=== PATIENT | female | born 1960 | race Caucasian/White ===

== ENCOUNTER 2020-03-24 16:13 | Emergency (ER) | payer MEDICARE, MEDICAID ==
[~2020-03-24 16:13] MED LIST: Iopamidol-370 76% 500 ML 1 ML ONE
[2020-03-24 17:20] LABS: Bacteria/HPF 2+ HPF (None Seen); Bilirubin Negative (Negative); Blood, Urine Negative (Negative); Clarity Turbid (Clear); Glucose, Urine (Dipstick) Normal (Negative); Ketone, Urine Negative (Negative); Leukocyte 500 Leu/uL (Negative); Nitrite 2+ (Negative); Protein, Urine (Dipstick) Negative (Neg-Trace); RBC/HPF 0-3 HPF (0-3); Squamous Epithelial 0-3 HPF (0-3); Urobilinogen Normal mg/dL (Less than 2); WBC/HPF Greater than 50 HPF (0-3)
[2020-03-24 18:00] LABS: #Basophils 0.1 thou/uL (0.0-0.2); #Eosinphils 0.2 thou/uL (0.0-0.7); #Lymphocytes 1.9 thou/uL (1.20-3.40); #Monocytes 0.6 thou/uL (0.11-0.59); #Neutrophils 5.2 thou/uL (1.40-6.50); %Basophils 0.7 % (0.0-1.0); %Eosinophils 2.5 % (0.0-10.0); %Lymphocytes 23.9 % (21.0-51.0); %Monocytes 7.7 % (0.0-10.0); %Neutrophils 65.2 % (42.0-75.0); Hemoglobin 9.6 g/dL (12.0-16.0); Mean Corpuscular HGB CONC 31.7 g/dL (32.0-36.0); Mean Corpuscular Hemoglobin 26.7 pg (27.0-31.0); Mean Corpuscular Volume 84.4 fL (78.0-98.0); Mean Platelet Volume 9.2 fL (7.4-10.4); Platelet Count 256 thou/uL (130-400); RBC Distribution Width 17.2 % (11.5-14.5); Red Blood Cell (RBC) Count 3.59 mill/uL (4.20-5.40)
[2020-03-24 18:15] LABS: ALT (SGPT) 7 U/L (8-55); AST (SGOT) 11 U/L (5-34); Albumin 3.9 g/dL (3.5-5.0); Alkaline Phosphatase 54 U/L (40-110); Anion Gap 12 mmol/L (10-20); BUN (Urea Nitrogen) 9 mg/dL (9.8-20.1); Bilirubin, Total 0.2 mg/dL (0.2-1.2); Calc. Creatinine Clearance 0 mL/min (70-130); Calcium 9.4 mg/dL (7.8-10.44); Carbon Dioxide 21 mmol/L (22-29); Chloride 106 mmol/L (98-107); Estimated GFR-MDRD 74; Globulin 3.1 g/dL (2.4-3.5); Glucose 124 mg/dL (70-105); Potassium 3.3 mmol/L (3.5-5.1); Sodium 136 mmol/L (136-145)
[2020-03-24] MEDS ORDERED: cefTRIAXone\\ROCEPHIN 2 GM VIAL ONE (20:02)
[2020-03-24] MEDS ORDERED: Aspirin Chewable 81 MG TAB ONE ×2 (20:39)
[2020-03-24] MEDS ORDERED: Fentanyl 100 MCG/2 ML VIAL ONE (20:52)
--- NOTE | 2020-03-24 20:54 | CT ---
CT ANGIOGRAM THORAX WITH IV CONTRAST AND 3-D RECONSTRUCTIONS CLINICAL INDICATION: Syncope. Intermittent dizziness. COMPARISON: None FINDINGS: Pulmonary arteries: No filling defects are seen in the pulmonary arteries to suggest a pulmonary embo martin. Aorta: Not well opacified but normal in caliber. Vascular calcifications are seen in the aortic arch. Vascular calcifications are seen in the coronary arteries. Lungs: Mild dependent atelectasis. Approximately 4 mm pulmonary nodule is present in the right upper lobe with closely adjacent and slightly smaller pulmonary nodule. No additional pulmonary nodule or mass is seen in the lungs bilaterally. No pleural effusion is present. Mediastinum: There is no evidence of lymphadenopathy. A hiatal hernia is present with the fundus of t he stomach above the level of the hemidiaphragms. Thyroid gland: Grossly normal appearance where visualized Osseous structures: Remote right-sided rib fractures are seen. Chest wall: No abnormality visualized. Upper abdomen: Postcholecystectomy changes. Calcifications are seen along the medial margin of the sp elia. IMPRESSION: 1. No CT evidence of a pulmonary embolus. 2. Pulmonary nodules right upper lobe which are overall nonspecific with largest pulmonary nodule berenice suring approximately 4 mm. 3. Hiatal hernia. 4. Postcholecystectomy changes.
[2020-03-25] MEDS ORDERED: Fentanyl 100 MCG/2 ML VIAL ONE (00:08)
== END 2020-03-25 00:23 | disposition short-term general hospital (02) ==
LOC: ERS 16:13
DX: R55 Syncope and collapse (principal); R00.1 Bradycardia, unspecified; J44.9 Chronic obstructive pulmonary disease, unspecified; F41.9 Anxiety disorder, unspecified; F17.220 Nicotine dependence, chewing tobacco, uncomplicated; Z79.899 Other long term (current) drug therapy
CPT/HCPCS: 36415; 71275; 80053; 81003; 81015; 83735; 84484; 85025; 87077; 87086; 87186; 93005; 96365; 96375; 96376; J0696; J3010; Q9967

== ENCOUNTER 2020-05-02 18:44 | Inpatient (IN) | payer MEDICARE, MEDICAID, OTHER ==
[2020-05-02 19:23] LABS: #Basophils 0.1 thou/uL (0.0-0.2); #Eosinphils 0.5 thou/uL (0.0-0.7); #Lymphocytes 2.3 thou/uL (1.20-3.40); #Monocytes 0.7 thou/uL (0.11-0.59); #Neutrophils 8.2 thou/uL (1.40-6.50); %Basophils 0.8 % (0.0-1.0); %Lymphocytes 19.6 % (21.0-51.0); %Monocytes 5.8 % (0.0-10.0); %Neutrophils 69.8 % (42.0-75.0); Hemoglobin 9.7 g/dL (12.0-16.0); Mean Corpuscular HGB CONC 32.8 g/dL (32.0-36.0); Mean Corpuscular Hemoglobin 28.4 pg (27.0-31.0); Mean Corpuscular Volume 86.5 fL (78.0-98.0); Mean Platelet Volume 9.1 fL (7.4-10.4); Platelet Count 330 thou/uL (130-400); RBC Distribution Width 18.7 % (11.5-14.5); White Blood Cell (WBC) Count 11.8 thou/uL (4.8-10.8)
[2020-05-02 19:43] LABS: ALT (SGPT) 8 U/L (8-55); AST (SGOT) 13 U/L (5-34); Alkaline Phosphatase 42 U/L (40-110); Anion Gap 9 mmol/L (10-20); BUN (Urea Nitrogen) 18 mg/dL (9.8-20.1); Bilirubin, Total 0.2 mg/dL (0.2-1.2); Calc. Creatinine Clearance 0 mL/min (70-130); Carbon Dioxide 25 mmol/L (22-29); Chloride 106 mmol/L (98-107); Estimated GFR-MDRD 73; Globulin 2.9 g/dL (2.4-3.5); Glucose 81 mg/dL (70-105); Potassium 3.6 mmol/L (3.5-5.1); Protein, Total 6.9 g/dL (6.0-8.3); Sodium 136 mmol/L (136-145)
[2020-05-02] MEDS ORDERED: Lidocaine Viscous Sol 2% 15 ml UD Cup ONE (19:46)
[2020-05-02] MEDS ORDERED: Pantoprazole 40 MG VIAL ONE (19:47)
[2020-05-02] MEDS ORDERED: Mag-Al 1200 mg/1200 mg/30 ML UDCUP ONE (19:47)
--- NOTE | 2020-05-02 19:53 | RAD ---
PORTABLE CHEST: 05/02/20 PROVIDED CLINICAL HISTORY: Shortness of breath. FINDINGS: Comparison 04/22/14. The cardiac silhouette is within normal limits for portable technique. Moderate hiatal hernia redemo nstrated. No focal consolidation, pleural fluid, or pneumothorax apparent. IMPRESSION: No evidence for an acute cardiopulmonary process. POS: JERONIMO
[2020-05-02] MEDS ORDERED: diphenhydrAMINE 50 MG/ML VIAL ONE (20:08)
[2020-05-02] MEDS ORDERED: Metoclopramide HCl 10 MG/2 ML VIAL ONE (20:08)
[2020-05-02] MEDS ORDERED: Magnesium 2 GM/50 ML BAG (IN WATER) ONE (20:18)
[2020-05-03 02:55] LABS: Troponin I Less than 0.010 ng/mL (< 0.028)
--- NOTE | 2020-05-03 03:28 | PDOC.HHP ---
Hospitalist HPI - History of Present Illness Falls/Syncope, GI bleed History of Present Illness: Patient is a 60-year-old woman who presents to the emergency department following a syncopal episode. The patient states she has had frequent falls in the last 2 days associated with a low hemoglobin. She states for the last couple days she has noted melena and coffee-ground emesis. She reports generalized abdominal discomfort and today has developed a burning type of discomfort in the epigastric region. She has a history of having GI bleeds in the past and requiring blood transfusions. She apparently has been experiencing generalized weakness and shortness of breath for the last 2 weeks. She had an EGD done recently according to the patient which showed esophageal bleeding. Currently she complains of having a headache and pain on the backside of her neck. States this is due to multiple falls. She has not undergone any imaging in the emergency department. ED COURSE: Chest x-ray showed no evidence for an acute cardiopulmonary process Labs notable for white cell count 11.8, hemoglobin 9.7, hematocrit 29.4, platelets 330, neutrophils 8.2. LFTs unremarkable. BUN 18 creatinine 0.81 GFR 73. PAST MEDICAL HISTORY: Asthma COPD History of bowel obstruction Hepatitis C Mitral valve regurgitation Borderline pulmonary hypertension Anxiety Depression PTSD. History of suicide attempts. PAST SURGICAL HISTORY: Hysterectomy Small bowel obstruction lysis of adhesions Cholecystectomy Hernia repair Fundoplication SOCIAL HISTORY: Patient states she drinks alcohol socially only. Denies any tobacco use or illicit drug use. FAMILY HISTORY: Noncontributory. ALLERGIES: Codeine sulfate, mirtazapine, oxycodone, Toradol, tramadol, zolpidem CURRENT MEDICATIONS: Proventil Alprazolam 0.5 mg twice daily Symbicort Citalopram 20 mg p.o. daily Ferrous sulfate 325 mg p.o. 3 times daily Incruse Ellipta Mid to drain 5 mg p.o. 3 times daily Pantoprazole 40 mg p.o. daily - Exam General Appearance: NAD (found sleeping on stretcher, easily woken.) General - other findings: BP 108/73, HR 52, RR 20, temp 98.3, 98% on room air O2 sats Eye: PERRL, anicteric sclera ENT: moist mucosa Neck: supple, symmetric, no lymphadenopathy Heart: RRR, no murmur, no gallops, normal peripheral pulses Respiratory: CTAB, no wheezes, no rales, no ronchi, normal chest expansion Gastrointestinal: soft, non-distended, no guarding Extremities: no edema Skin: normal turgor, no lesions Neurological: cranial nerve grossly intact, normal sensation to touch Musculoskeletal: normal tone, normal strength, no muscle wasting Psychiatric: normal affect, normal behavior, A&O x 3 Hospitalist Results - Labs Result Diagrams: 05/02/20 19:12 05/02/20 19:12 Lab results: WBC 11.8 thou/uL (4.8-10.8) H 05/02/20 19:12 Hgb 9.7 g/dL (12.0-16.0) L 05/02/20 19:12 Hct 29.4 % (36.0-47.0) L 05/02/20 19:12 MCV 86.5 fL (78.0-98.0) 05/02/20 19:12 Plt Count 330 thou/uL (130-400) 05/02/20 19:12 Neutrophils % 69.8 % (42.0-75.0) 05/02/20 19:12 Sodium 136 mmol/L (136-145) 05/02/20 19:12 Potassium 3.6 mmol/L (3.5-5.1) 05/02/20 19:12 Chloride 106 mmol/L (98-107) 05/02/20 19:12 Carbon Dioxide 25 mmol/L (22-29) 05/02/20 19:12 BUN 18 mg/dL (9.8-20.1) 05/02/20 19:12 Creatinine 0.81 mg/dL (0.6-1.1) 05/02/20 19:12 Glucose 81 mg/dL (70-105) 05/02/20 19:12 Calcium 9.0 mg/dL (7.8-10.44) 05/02/20 19:12 Total Bilirubin 0.2 mg/dL (0.2-1.2) 05/02/20 19:12 AST 13 U/L (5-34) 05/02/20 19:12 ALT 8 U/L (8-55) 05/02/20 19:12 Alkaline Phosphatase 42 U/L (40-110) 05/02/20 19:12 Troponin I Less than 0.010 ng/mL (< 0.028) 05/03/20 02:24 Serum Total Protein 6.9 g/dL (6.0-8.3) 05/02/20 19:12 Albumin 4.0 g/dL (3.5-5.0) 05/02/20 19:12 Hospitalist H&P A/P - Problem (1) Syncope and collapse Code(s): R55 - SYNCOPE AND COLLAPSE Status: Acute (2) Coffee ground emesis Code(s): K92.0 - HEMATEMESIS Status: Acute (3) Melena Code(s): K92.1 - MELENA Status: Acute (4) History of GI bleed Code(s): Z87.19 - PERSONAL HISTORY OF OTHER DISEASES OF THE DIGESTIVE SYSTEM Status: Chronic (5) History of COPD Code(s): Z87.09 - PERSONAL HISTORY OF OTHER DISEASES OF THE RESPIRATORY SYSTEM Status: Chronic (6) Hepatitis C Code(s): B19.20 - UNSPECIFIED VIRAL HEPATITIS C WITHOUT HEPATIC COMA Status: Chronic - Plan Plan: Monitor BP. Gentle IV fluids. IV protonix 40 mg BID. Monitor H/H. GI consult has been place. Keep NPO until seen. CT head/cspine. Orthostatic BPs. Check alcohol level. UA/UDS.
[2020-05-03] MEDS: Sodium Chloride 0.9% 1,000 ML IV SCH ×2 (03:30→18:16)
[2020-05-03] MEDS ORDERED: Acetaminophen 325 MG TAB PO PRN (03:52)
[2020-05-03 05:22] VITALS: BMI 27.7
[2020-05-03 05:22] LABS: #Basophils 0.1 thou/uL (0.0-0.2); #Eosinphils 0.4 thou/uL (0.0-0.7); #Lymphocytes 1.9 thou/uL (1.20-3.40); #Monocytes 0.5 thou/uL (0.11-0.59); #Neutrophils 3.1 thou/uL (1.40-6.50); %Basophils 1.6 % (0.0-1.0); %Lymphocytes 31.4 % (21.0-51.0); %Monocytes 7.7 % (0.0-10.0); %Neutrophils 53.2 % (42.0-75.0); Hemoglobin 9.5 g/dL (12.0-16.0); Mean Corpuscular HGB CONC 32.4 g/dL (32.0-36.0); Mean Corpuscular Hemoglobin 28.3 pg (27.0-31.0); Mean Corpuscular Volume 87.5 fL (78.0-98.0); Platelet Count 269 thou/uL (130-400); RBC Distribution Width 18.6 % (11.5-14.5); Red Blood Cell (RBC) Count 3.36 mill/uL (4.20-5.40); White Blood Cell (WBC) Count 5.9 thou/uL (4.8-10.8)
[2020-05-03 05:43] LABS: ALT (SGPT) Less than 7 U/L (8-55); AST (SGOT) 12 U/L (5-34); Albumin 3.6 g/dL (3.5-5.0); Alkaline Phosphatase 38 U/L (40-110); Anion Gap 10 mmol/L (10-20); BUN (Urea Nitrogen) 16 mg/dL (9.8-20.1); Bilirubin, Total 0.2 mg/dL (0.2-1.2); Calc. Creatinine Clearance 95 mL/min (70-130); Calcium 8.6 mg/dL (7.8-10.44); Carbon Dioxide 23 mmol/L (22-29); Chloride 107 mmol/L (98-107); Estimated GFR-MDRD 77; Globulin 2.6 g/dL (2.4-3.5); Glucose 85 mg/dL (70-105); Potassium 3.8 mmol/L (3.5-5.1); Protein, Total 6.2 g/dL (6.0-8.3); Sodium 136 mmol/L (136-145)
[2020-05-03 05:53] LABS: Troponin I Less than 0.010 ng/mL (< 0.028)
--- NOTE | 2020-05-03 07:38 | CT ---
PRELIMINARY REPORT/[facility]/EMERGENCY AFTER HOURS PROCEDURE EXAM: CT Head and Cervical Spine Without IV contrast. CLINICAL HISTORY: FALL TECHNIQUE: Axial computed tomography images were acquired of the head and the cervical spine without intravenous contrast. Sagittal and coronal reformatted images were obtained of the cervical spine. COMPARISON: None provided. FINDINGS: BRAIN: No acute intraparenchymal hemorrhage. No mass lesion. No CT evidence for acute territorial infarct. N o midline shift or extra-axial collection. VENTRICLES No hydrocephalus. ORBITS The orbits are unremarkable. SINUSES AND MASTOIDS The paranasal sinuses and mastoid air cells are clear. SOFT TISSUES No significant facial or scalp soft tissue swelling evident. No radiopaque foreign body is seen. BONES No acute osseous pathology evident. No acute fracture is evident on images of the head or cervical spine. DISKS/DEGENERATIVE CHANGES Degenerative changes at C5-C6 level with narrowing of the neural foramen. No critical spinal stenosi s is seen. IMPRESSION: 1. No acute intracranial findings. No acute intracranial injury evident. 2. No cervical spine fracture evident. ELECTRONICALLY SIGNED BY: Boom Manning MD May 03, 2020 5:39:12 AM CDT This report is intended for review by the ordering physician only, in accordance of law. If you recei ve this report in error, please call [facility] at [phone]. FINAL REPORT Exam: Head CT without contrast HISTORY: Fall. Headache. COMPARISON: 08/26/2002 FINDINGS: Hemorrhage: No intraparenchymal hemorrhage or extra-axial hematoma. Brain parenchyma: Cortical watson-white matter differentiation is preserved. No mass effect or midline shift. Basilar cisterns are patent. Ventricular system: Ventricles and sulci are patent and symmetric. Calvarium: Intact. Sinuses and mastoid air cells: Adequate aeration. IMPRESSION: 1. This report is in agreement with initial report by [facility]. 2. No intracranial posttraumatic sequelae. Transcribed Date/Time: 05/03/2020 9:45 AM
--- NOTE | 2020-05-03 07:47 | CT ---
PRELIMINARY REPORT/[facility]/EMERGENCY AFTER HOURS PROCEDURE EXAM: CT Head and Cervical Spine Without IV contrast. CLINICAL HISTORY: FALL TECHNIQUE: Axial computed tomography images were acquired of the head and the cervical spine without intravenous contrast. Sagittal and coronal reformatted images were obtained of the cervical spine. COMPARISON: None provided. FINDINGS: BRAIN: No acute intraparenchymal hemorrhage. No mass lesion. No CT evidence for acute territorial infarct. N o midline shift or extra-axial collection. VENTRICLES No hydrocephalus. ORBITS The orbits are unremarkable. SINUSES AND MASTOIDS The paranasal sinuses and mastoid air cells are clear. SOFT TISSUES No significant facial or scalp soft tissue swelling evident. No radiopaque foreign body is seen. BONES No acute osseous pathology evident. No acute fracture is evident on images of the head or cervical spine. DISKS/DEGENERATIVE CHANGES Degenerative changes at C5-C6 level with narrowing of the neural foramen. No critical spinal stenosi s is seen. IMPRESSION: 1. No acute intracranial findings. No acute intracranial injury evident. 2. No cervical spine fracture evident. ELECTRONICALLY SIGNED BY: Boom Manning MD May 03, 2020 5:39:12 AM CDT This report is intended for review by the ordering physician only, in accordance of law. If you recei ve this report in error, please call [facility] at [phone]. FINAL REPORT Exam: CT cervical spine without contrast HISTORY: Trauma. Pain. Fall. COMPARISON: None FINDINGS: No craniocervical dissociation. Appropriate alignment of the lateral masses of C1 and C2. Intact odon toid process Appropriate alignment of the facets. Soft tissue neck structures: No mass, lymphadenopathy or hematoma. No prevertebral soft tissue swelli ng. Upper mediastinum and lung apices: Unremarkable Central spinal canal: Moderate central canal stenosis at C5-C6 secondary to disc osteophyte complex. Varying degrees of significant neural foraminal narrowing. Technique limits evaluation. Vertebral bodies: Cervical spine vertebral body height is maintained. No fracture. IMPRESSION: 1. This report is in agreement with initial report by [facility]. 2. No fracture. Transcribed Date/Time: 05/03/2020 9:44 AM
--- NOTE | 2020-05-03 07:51 | CT ---
CT ABDOMEN AND PELVIS WITH IV CONTRAST: Date: 05/02/2020 PROVIDED CLINICAL HISTORY: Epigastric pain. FINDINGS: The visualized lung bases are free of significant opacity. There is moderate hiatal hernia demonstrat ed. The solid abdominal organs demonstrate no significant abnormality. Changes of prior cholecystectomy are seen. There is no evidence for appendicitis. There is no bowel dilatation, inflammatory fat stranding, free fluid, or free air apparent. The regional major vascular structures appear unremarkable. The osseous structures demonstrate no concerning lytic or blastic lesions. IMPRESSION: No evidence for an acute process. POS: JERONIMO
[2020-05-03] MEDS: Pantoprazole 40 MG VIAL IVP SCH ×2 (08:06→20:08)
[2020-05-03 08:36] LABS: Hemoglobin 9.3 g/dL (12.0-16.0)
[2020-05-03 08:56] LABS: Amphetamine Not Detected (NotDetected); Barbiturates Screen Not Detected (NotDetected); Benzodiazepine Screen Detected (NotDetected); Cocaine Metabolite Screen Not Detected (NotDetected); Medtox Control Line Valid? VALID (VALID); Medtox Reader # READER 1; Methadone Not Detected (NotDetected); Methamphetamine Not Detected (NotDetected); Opiate Screen Not Detected (NotDetected); Oxycodone Screen Not Detected (NotDetected); Phencyclidine (PCP) Not Detected (NotDetected); THC/Cannabinoid Screen Detected (NotDetected); Tricyclic Screen Not Detected (NotDetected)
[2020-05-03] MEDS ORDERED: Non-Formulary Item 1 EACH (Albuterol Sulfate [Albuterol Sulfate Neb] 0.63 MG) NEB PRN (09:14)
[2020-05-03] MEDS ORDERED: Non-Formulary Item 1 EACH (Cholecalciferol (Vitamin D3) [Vitamin D3] 1 TAB) PO SCH (09:15)
[2020-05-03] MEDS ORDERED: Albuterol Sulfate 1.25 MG/3 ML NEB NEB PRN (09:32)
[2020-05-03] MEDS: HYDROcodone/Acetaminophen 5/325 mg Tablet PO PRN (11:46)
[2020-05-03] MEDS ORDERED: Promethazine HCl 25 MG/ML VIAL IM/IV PRN (11:55)
[2020-05-03] MEDS ORDERED: Ergocalciferol 1.25 MG(50,000 UNITS) CAP PO SCH (12:00)
[2020-05-03] MEDS ORDERED: Promethazine HCl 12.5 MG in Sodium Chloride 0.9% 50 ML IVPB PRN (12:38)
[2020-05-03] MEDS ORDERED: Promethazine HCl 25 MG in Sodium Chloride 0.9% 50 ML IVPB PRN (12:45)
[2020-05-03 13:48] LABS: SARS-CoV-2 MS2 Positive; SARS-CoV-2 N Gene Negative; SARS-CoV-2 S Gene Negative; SARS-CoV-2 by NAA Not Detected (NotDetected); SARS-CoV-2 orf1ab Negative
[2020-05-03] MEDS: Ipratropium Bromide 2.5 ml Neb NEB SCH ×3 (14:25→23:57)
[2020-05-03 14:30] LABS: Hemoglobin 8.6 g/dL (12.0-16.0)
[2020-05-03] MEDS ORDERED: Non-Formulary Item 1 EACH (Ferrous Sulfate [Ferrous Sulfate] 325 MG) PO SCH (15:00)
--- NOTE | 2020-05-03 15:35 | RAD ---
Exam:2 views right hip HISTORY: Fall. Pain. COMPARISON: 01/20/2007 FINDINGS: Contour of the femoral head is maintained. Hip joint spaces preserved. No fracture. Visuali zed sacrum and bony pelvis are intact. IMPRESSION: No fracture.
[2020-05-03] MEDS: Ferrous Sulfate 325 MG TAB PO SCH ×2 (15:49→20:08)
[2020-05-03] MEDS: Midodrine HCl 5 MG TAB PO SCH ×2 (15:49→20:13)
[2020-05-03] MEDS: ALPRAZolam 0.5 MG TAB PO SCH ×2 (15:49→20:08)
[2020-05-03] MEDS ORDERED: Lidocaine 5% Patch TD SCH (17:45)
[2020-05-03] MEDS: Morphine 2 MG/ML VIAL SLOW IVP PRN (18:16)
[2020-05-03] MEDS: Lidocaine 5% Patch TD SCH (18:18)
[2020-05-03] MEDS: Mometasone 200 MCG/Formoterol 5 MCG 120 PUFF INHALER INH SCH (19:09)
[2020-05-03 20:04] LABS: Hemoglobin 8.4 g/dL (12.0-16.0)
[2020-05-03] MEDS: Citalopram 20 MG TAB PO SCH (20:12)
[2020-05-03] MEDS: risperiDONE 0.25 MG TAB PO SCH (20:12)
[2020-05-03] MEDS ORDERED: Non-Formulary Item 1 EACH (Risperidone [Risperdal] 0.5 MG) PO SCH (21:00)
[2020-05-03] MEDS ORDERED: Non-Formulary Item 1 EACH (Budesonide/Formoterol Fumarate [Budesonide-Formoterol 160-4.5] IH SCH (21:00)
--- NOTE | 2020-05-04 00:28 | CON ---
DATE OF CONSULTATION: 05/03/2020 CHIEF COMPLAINT: Fall and black stools. HISTORY OF PRESENT ILLNESS: Ms. Burciaga is a 60-year-old woman with a history of hepatitis C and possible cirrhosis, who states that she had fallen a couple times at home and has been passing black stools for the last 3 days. She has had no bowel movement today. She had been on iron for anemia. She had an EGD may be around a month ago in [place] and had some bleeding treated in her esophagus. She also had a colonoscopy per her report. She is somewhat confused now, slow to answer questions. Unclear if this is due to the pain medications or if she is encephalopathic. She has had some mild epigastric pain. She vomited some dark green material. She did have a Hemoccult tested when she came in that was negative. She has a history of blood transfusion for GI bleed in the past. She takes Excedrin daily. PAST MEDICAL HISTORY: Asthma and COPD, hepatitis C, pulmonary hypertension, depression, PTSD, history of suicide attempt, and questionable history of cirrhosis as she is somewhat confused and difficult to tell of she is answering accurately. PAST SURGICAL HISTORY: Recent EGD and colonoscopy, hysterectomy, small bowel obstruction with lysis of adhesions, cholecystectomy, hernia repair, and fundoplication five or six years ago. FAMILY HISTORY: Negative for GI malignancies. SOCIAL HISTORY: She drinks alcohol once per year. No drugs or tobacco. ALLERGIES: CODEINE, MIRTAZAPINE, OXYCODONE, TORADOL, TRAMADOL, AND AMBIEN. MEDICATIONS: 1. Nebulizer. 2. Pantoprazole 40 mg daily. REVIEW OF SYSTEMS: Negative x10 systems reviewed except as stated in the history of present illness. PHYSICAL EXAMINATION: VITAL SIGNS: Temperature 97.5, pulse 66, and blood pressure 113/57. GENERAL: She is in no acute distress. She is oriented x3, but she is slow to answer questions and gives somewhat questionable accuracy to her history now. HEENT: Her eyes have no scleral icterus. Oropharynx is clear without lesions. No cervical or supraclavicular lymphadenopathy. She does not have obvious asterixis on neurological exam. LUNGS: Clear to auscultation bilaterally. HEART: Regular rate and rhythm without murmur. ABDOMEN: Soft, nontender, and nondistended. Bowel sounds are present. EXTREMITIES: No lower extremity edema. RECTAL: Reveals firm dark stool in the rectal vault, very dark brown. LABORATORY DATA: White blood cell count 5.9, hemoglobin 8.6, and platelets 269. Creatinine 0.77, bilirubin 0.2, AST 12, ALT 7, alkaline phosphatase 38, and albumin 3.6. Urine cannabinoids were positive. IMAGING: She had a CT scan of the abdomen and pelvis yesterday, which was negative. IMPRESSION: 1. Gastrointestinal bleed. She has had black stools for the last few days and reportedly some coffee-grounds emesis as well. She reports an endoscopy one month ago with treatment of bleeding esophageal lesions. She was actually Hemoccult negative here in the black stools could be due to iron supplementation; however, there could be some inaccuracy with the Hemoccult and given the history with concern of liver disease and esophageal lesion, I will plan for endoscopy tomorrow. She has not had signs of overt bleeding otherwise today. 2. History of hepatitis C. when asked her she has cirrhosis. She says yes, but her bilirubin is normal. Her platelets are normal. Her INR is not known. Her albumin is normal. No splenomegaly or nodular contour was noted by CT scan. She states that she was treated for the hepatitis C a few years ago with appropriate response. 3. Possible encephalopathy. She is slow and sleepy and falls asleep when not stimulated. This might just be due to the pain medicine. I will give her dose of the lactulose and check an ammonia level. RECOMMENDATIONS: 1. Lactulose dose now. 2. Check ammonia level. 3. EGD tomorrow. Job ID: [id number]
[2020-05-04] MEDS: Morphine 2 MG/ML VIAL SLOW IVP PRN ×3 (03:08→18:55)
[2020-05-04] MEDS: Levothyroxine Sodium 100 MCG TAB PO SCH (03:09)
[2020-05-04] MEDS: Lidocaine Patch Removal 1 EACH TOP SCH (05:08)
[2020-05-04] MEDS: Mometasone 200 MCG/Formoterol 5 MCG 120 PUFF INHALER INH SCH ×2 (07:17→19:47)
[2020-05-04] MEDS: Ipratropium Bromide 2.5 ml Neb NEB SCH ×3 (07:17→19:46)
--- NOTE | 2020-05-04 07:33 | PDOC.HOSPP ---
- Subjective Encounter Date: 05/04/20 Encounter Time: 07:23 Subjective: alert, no nausea, vomiting - Objective Vital Signs & Weight: Vital Signs (12 hours) Temp Pulse Resp BP Pulse Ox 05/04/20 07:17 90 16 05/04/20 03:12 97.7 F 68 13 97/54 L 95 05/04/20 00:20 65 20 110/59 L 98 05/03/20 23:57 93 L Weight Weight 166 lb 9.6 oz I&O: 05/03/20 05/04/20 05/05/20 06:59 06:59 06:59 Intake Total 1775 Output Total 1950 Balance -175 Result Diagrams: 05/03/20 19:52 05/03/20 04:53 Hospitalist ROS - Medication Medications: Active Medications Generic Name Dose Route Start Last Admin Trade Name Freq PRN Reason Stop Dose Admin Acetaminophen 650 mg 05/03/20 03:52 05/03/20 04:45 Tylenol PO 650 mg Q4H PRN Administration Headache/Fever or Pain Hydrocodone Bitart/Acetaminophen 1 tab 05/03/20 09:14 05/03/20 11:46 [place] 5/325 PO 1 tab Q6H PRN Administration Pain Alprazolam 1 mg 05/03/20 15:00 05/03/20 20:08 Xanax PO 1 mg TID ALEJANDRINA Administration Citalopram Hydrobromide 40 mg 05/03/20 21:00 05/03/20 20:12 Celexa PO 40 mg HS ALEJANDRINA Administration Ferrous Sulfate 325 mg 05/03/20 15:00 05/03/20 20:08 Feosol PO 325 mg TID ALEJANDRINA Administration Sodium Chloride 1,000 mls @ 75 mls/hr 05/03/20 03:15 05/03/20 18:16 Normal Saline 0.9% IV 1,000 mls .[id number] ALEJANDRINA Administration Promethazine HCl 25 mg/ Sodium 51 mls @ 204 mls/hr 05/03/20 12:45 05/03/20 17 :21 Chloride IVPB 51 mls Q6H PRN Administration Nausea Ipratropium [place] 2.5 ml 05/03/20 13:00 05/04/20 07:17 Atrovent NEB 2.5 ml [id number] ALEJANDRINA Administration Levothyroxine Sodium 100 mcg 05/04/20 06:00 05/04/20 03:09 Synthroid PO 100 mcg 0600 ALEJANDRINA Administration Lidocaine 1 patch 05/03/20 18:00 05/03/20 18:18 Lidoderm 5% Patch TD 1 patch 1800 ALEJANDRINA Administration Midodrine 5 mg 05/03/20 15:00 05/03/20 20:13 Proamatine PO 5 mg TID ALEJANDRINA Administration Miscellaneous Medication 1 each 05/04/20 06:00 05/04/20 05:08 Lidocaine Patch Removal TOP Not Given 0600 ALEJANDRINA Mometasone Furoate/Formoterol Fumar 2 puff 05/03/20 18:30 05/04/20 07:17 Dulera 200 Mcg/5 Mcg Inhaler INH 2 puff BID-RT ALEJANDRINA Administration Morphine Sulfate 2 mg 05/03/20 17:36 05/04/20 03:08 Morphine SLOW IVP 2 mg Q6H PRN Administration Pain Pantoprazole Sodium 40 mg 05/03/20 09:00 05/03/20 20:08 Protonix IVP 40 mg BID ALEJANDRINA Administration Risperidone 0.5 mg 05/03/20 21:00 05/03/20 20:12 Risperidone PO 0.5 mg HS ALEJANDRINA Administration Sodium Chloride 10 ml 05/03/20 03:08 05/03/20 17:22 Flush - Normal Saline IVF 10 ml PRN PRN Administration Saline Flush - Exam Neck: no JVD Heart: RRR, no murmur Respiratory: CTAB Gastrointestinal: soft, non-tender, normal bowel sounds Extremities: no edema Hosp A/P (1) Coffee ground emesis Code(s): K92.0 - HEMATEMESIS Status: Acute (2) Melena Code(s): K92.1 - MELENA Status: Acute (3) Syncope and collapse Code(s): R55 - SYNCOPE AND COLLAPSE Status: Acute (4) Hepatitis C Code(s): B19.20 - UNSPECIFIED VIRAL HEPATITIS C WITHOUT HEPATIC COMA Status: Chronic (5) History of COPD Code(s): Z87.09 - PERSONAL HISTORY OF OTHER DISEASES OF THE RESPIRATORY SYSTEM Status: Chronic (6) History of GI bleed Code(s): Z87.19 - PERSONAL HISTORY OF OTHER DISEASES OF THE DIGESTIVE SYSTEM Status: Chronic - Plan stools neg blood x2 ammonia normal discuss with GI
[2020-05-04] MEDS: Sodium Chloride 0.9% 1,000 ML IV SCH (08:17)
[2020-05-04] MEDS: Fludrocortisone Acetate 0.1 MG TAB PO SCH (08:18)
[2020-05-04] MEDS: ALPRAZolam 0.5 MG TAB PO SCH ×3 (08:18→20:50)
[2020-05-04] MEDS: Folic Acid 1 MG TAB PO SCH (08:18)
[2020-05-04] MEDS: Pantoprazole 40 MG VIAL IVP SCH (08:19)
[2020-05-04] MEDS: Midodrine HCl 5 MG TAB PO SCH ×3 (08:19→20:50)
[2020-05-04] MEDS: Ferrous Sulfate 325 MG TAB PO SCH ×3 (08:19→20:51)
[2020-05-04] MEDS ORDERED: Non-Formulary Item 1 EACH (Umeclidinium Bromide [Incruse Ellipta] 1 INH) IH SCH (09:00)
[2020-05-04] MEDS ORDERED: Levothyroxine Sodium 100 MCG TAB PO SCH (09:00)
[2020-05-04] MEDS ORDERED: Folic Acid 1 MG TAB PO SCH (09:00)
[2020-05-04 09:31] LABS: Iron 271 ug/dL (50-170); Iron Binding Capacity, Total 270 mcg/dL (265-497)
[2020-05-04] MEDS ORDERED: PROPOFOL 200 MG/20 ML VIAL ONE (10:54)
[2020-05-04] MEDS ORDERED: PHENYLEPHRINE-NS 100 MCG/ML 10 ML SYRINGE ONE (10:54)
[2020-05-04] MEDS ORDERED: Lidocaine 1% PF 5 ML VIAL ONE (10:54)
[2020-05-04] MEDS: HYDROcodone/Acetaminophen 5/325 mg Tablet PO PRN (11:57)
[2020-05-04] MEDS ORDERED: Promethazine HCl 25 MG/ML VIAL SLOW IVP PRN (14:46)
[2020-05-04] MEDS ORDERED: Ondansetron HCl/PF 4 MG/2 ML Vial IVP PRN (14:46)
[2020-05-04] MEDS ORDERED: Promethazine HCl 25 MG/ML VIAL IM PRN (14:46)
--- NOTE | 2020-05-04 17:16 | PDOC.EVN ---
Event Note - Event Note Event Note: post EGD, multiple Bx. will need 2 overnights to repeat Hg in am to be safe that she has no post Bx bleeding
[2020-05-04] MEDS: Lidocaine 5% Patch TD SCH (19:39)
[2020-05-04] MEDS: risperiDONE 0.25 MG TAB PO SCH (20:50)
[2020-05-04] MEDS: Citalopram 20 MG TAB PO SCH (20:50)
--- NOTE | 2020-05-04 21:23 | OP ---
DATE OF PROCEDURE: 05/04/2020 PROCEDURE PERFORMED: Esophagogastroduodenoscopy with biopsy. PREOPERATIVE DIAGNOSES: Hematemesis, melena, nausea and vomiting. DESCRIPTION OF PROCEDURE: Informed consent was obtained from the patient. She was sedated with total intravenous anesthesia. The bite block was placed and the endoscope was advanced easily to the second portion of the duodenum and retroflexion was performed in the stomach. The esophagus was mildly patulous and somewhat tense at the lower esophageal sphincter. The mucosa was normal. The Z-line was normal. The stomach had a large hiatal hernia measuring around 5 cm. There was evidence of a prior fundoplication, which was tied around the lower esophageal sphincter. However, as there was still large hiatal hernia present, it appears the fundoplication likely slipped. There was an ulcer in the mid body of the stomach distal to the level of the hiatal hernia. Biopsies were obtained from this 9 mm ulcer. There was a clean white base without stigmata of recent bleeding. Erosive gastritis was present in the antrum and biopsies were obtained to rule out Helicobacter pylori. The pylorus was normal. The first portion of the duodenum had mild erythematous duodenitis. The second portion of the duodenum was normal. Biopsies were obtained from the duodenum to rule out celiac disease. IMPRESSION: 1. Post fundoplication with tight lower esophageal sphincter, but still with a 5 cm hiatal hernia with a large diaphragmatic opening. 2. 9 mm ulcer in the midbody of the stomach, biopsied. There was a very slight torsion to the stomach as it goes to the diaphragm and it is possible that if she was retching, this ulcer could have sheared up at the level of the diaphragmatic pinch but at this point, the ulcer is located distal to the hiatal hernia. 3. Erosive gastritis in the antrum, biopsied to rule out Helicobacter pylori. 4. Erythematous duodenitis in the first portion of the duodenum with a normal second portion of the duodenum. Biopsies were obtained to rule out celiac disease. RECOMMENDATIONS: 1. Await histopathology. 2. Proton pump inhibitor. 3. Avoid NSAIDs. 4. Advance her diet. As long as she tolerates this, she can discharge home. Follow up with Dr. Yu in 2 to 4 weeks. Please call if GI can be of assistance. Job ID: [id number]
[2020-05-05] MEDS: Morphine 2 MG/ML VIAL SLOW IVP PRN ×2 (00:57→07:03)
[2020-05-05] MEDS: Ipratropium Bromide 2.5 ml Neb NEB SCH ×3 (01:03→12:06)
[2020-05-05 04:42] LABS: #Eosinphils 0.2 thou/uL (0.0-0.7); #Lymphocytes 1.2 thou/uL (1.20-3.40); #Monocytes 0.4 thou/uL (0.11-0.59); #Neutrophils 3.8 thou/uL (1.40-6.50); %Basophils 0.3 % (0.0-1.0); %Lymphocytes 20.6 % (21.0-51.0); %Monocytes 6.6 % (0.0-10.0); %Neutrophils 68.5 % (42.0-75.0); Hemoglobin 7.4 g/dL (12.0-16.0); Mean Corpuscular HGB CONC 31.6 g/dL (32.0-36.0); Mean Corpuscular Hemoglobin 27.2 pg (27.0-31.0); Mean Corpuscular Volume 86.1 fL (78.0-98.0); Mean Platelet Volume 8.9 fL (7.4-10.4); Platelet Count 241 thou/uL (130-400); Red Blood Cell (RBC) Count 2.73 mill/uL (4.20-5.40); White Blood Cell (WBC) Count 5.6 thou/uL (4.8-10.8)
[2020-05-05] MEDS: Levothyroxine Sodium 100 MCG TAB PO SCH (05:51)
[2020-05-05] MEDS: Sodium Chloride 0.9% 1,000 ML IV SCH ×2 (05:51)
[2020-05-05] MEDS: Lidocaine Patch Removal 1 EACH TOP SCH (05:54)
[2020-05-05] MEDS: Mometasone 200 MCG/Formoterol 5 MCG 120 PUFF INHALER INH SCH (06:39)
--- NOTE | 2020-05-05 07:43 | PDOC.HOSPP ---
- Subjective Encounter Date: 05/05/20 Encounter Time: 07:40 Subjective: abd still feels like burning sensation inside - Objective Vital Signs & Weight: Vital Signs (12 hours) Temp Pulse Resp BP Pulse Ox 05/05/20 06:42 102 H 16 93 L 05/05/20 06:39 102 H 20 93 L 05/05/20 04:49 97.6 F 58 L 16 100/53 L 97 05/05/20 01:03 93 L 05/04/20 19:47 95 05/04/20 19:46 93 L Weight Weight 166 lb 9.6 oz I&O: 05/04/20 05/05/20 05/06/20 06:59 06:59 06:59 Intake Total 1775 1305 Output Total 9982 0370 Balance -175 -2365 Result Diagrams: 05/05/20 04:18 05/03/20 04:53 Hospitalist ROS - Medication Medications: Active Medications Generic Name Dose Route Start Last Admin Trade Name Freq PRN Reason Stop Dose Admin Acetaminophen 650 mg 05/03/20 03:52 05/03/20 04:45 Tylenol PO 650 mg Q4H PRN Administration Headache/Fever or Pain Hydrocodone Bitart/Acetaminophen 1 tab 05/03/20 09:14 05/04/20 11:57 Beulah 5/325 PO 1 tab Q6H PRN Administration Pain Alprazolam 1 mg 05/03/20 15:00 05/04/20 20:50 Xanax PO 1 mg TID ALEJANDRINA Administration Citalopram Hydrobromide 40 mg 05/03/20 21:00 05/04/20 20:50 Celexa PO 40 mg HS ALEJANDRINA Administration Ferrous Sulfate 325 mg 05/03/20 15:00 05/04/20 20:51 Feosol PO 325 mg TID ALEJANDRINA Administration Fludrocortisone Acetate 0.1 mg 05/04/20 09:00 05/04/20 08:18 Florinef PO 0.1 mg DAILY ALEJANDRINA Administration Folic Acid 1 mg 05/04/20 09:00 05/04/20 08:18 Folvite PO 1 mg DAILY ALEJANDRINA Administration Sodium Chloride 1,000 mls @ 75 mls/hr 05/03/20 03:15 05/05/20 05:51 Normal Saline 0.9% IV 1,000 mls .[id number] ALEJANDRINA Administration Promethazine HCl 25 mg/ Sodium 51 mls @ 204 mls/hr 05/03/20 12:45 05/03/20 17 :21 Chloride IVPB 51 mls Q6H PRN Administration Nausea Ipratropium Costa 2.5 ml 05/03/20 13:00 05/05/20 06:42 Atrovent NEB 2.5 ml [id number] ALEJANDRINA Administration Levothyroxine Sodium 100 mcg 05/04/20 06:00 05/05/20 05:51 Synthroid PO 100 mcg 0600 ALEJANDRINA Administration Lidocaine 1 patch 05/03/20 18:00 05/04/20 19:39 Lidoderm 5% Patch TD 1 patch 1800 ALEJANDRINA Administration Midodrine 5 mg 05/03/20 15:00 05/04/20 20:50 Proamatine PO 5 mg TID ALEJANDRINA Administration Miscellaneous Medication 1 each 05/04/20 06:00 05/05/20 05:54 Lidocaine Patch Removal TOP 1 each 00 ALEJANDRINA Administration Mometasone Furoate/Formoterol Fumar 2 puff 05/03/20 18:30 05/05/20 06:39 Dulera 200 Mcg/5 Mcg Inhaler INH 2 puff BID-RT ALEJANDRINA Administration Morphine Sulfate 2 mg 05/03/20 17:36 05/05/20 07:03 Morphine SLOW IVP 2 mg Q6H PRN Administration Pain Pantoprazole Sodium 40 mg 05/04/20 21:00 05/04/20 20:51 Protonix PO 40 mg BID ALEJANDRINA Administration Risperidone 0.5 mg 05/03/20 21:00 05/04/20 20:50 Risperidone PO 0.5 mg HS ALEJANDRINA Administration Sodium Chloride 10 ml 05/03/20 03:08 05/04/20 09:07 Flush - Normal Saline IVF 10 ml Q12HR PRN Administration Saline Flush Sodium Chloride 10 ml 05/03/20 03:08 05/03/20 17:22 Flush - Normal Saline IVF 10 ml PRN PRN Administration Saline Flush - Exam General Appearance: awake alert Neck: no JVD Heart: RRR, no murmur Respiratory: CTAB Gastrointestinal: soft, non-tender, normal bowel sounds Extremities: no edema Hosp A/P (1) Coffee ground emesis Code(s): K92.0 - HEMATEMESIS Status: Acute (2) Melena Code(s): K92.1 - MELENA Status: Acute (3) Syncope and collapse Code(s): R55 - SYNCOPE AND COLLAPSE Status: Acute (4) Hepatitis C Code(s): B19.20 - UNSPECIFIED VIRAL HEPATITIS C WITHOUT HEPATIC COMA Status: Chronic (5) History of COPD Code(s): Z87.09 - PERSONAL HISTORY OF OTHER DISEASES OF THE RESPIRATORY SYSTEM Status: Chronic (6) History of GI bleed Code(s): Z87.19 - PERSONAL HISTORY OF OTHER DISEASES OF THE DIGESTIVE SYSTEM Status: Chronic (7) Anemia due to blood loss, acute Code(s): D62 - ACUTE POSTHEMORRHAGIC ANEMIA Status: Acute (8) PUD (peptic ulcer disease) Code(s): K27.9 - PEPTIC ULC, SITE UNSP, UNSP AC OR CHR, W/O HEMOR OR PERF Status: Acute - Plan post EGD with PUD, gastritis cont PPI, add maalox prnm DC morphine Hg down to 7.4, keep inpt, cbc in AM iron level high, DC po iron
[2020-05-05] MEDS ORDERED: Mag-Al 1200 mg/1200 mg/30 ML UDCUP PO PRN (07:45)
[2020-05-05] MEDS: Midodrine HCl 5 MG TAB PO SCH (08:18)
[2020-05-05] MEDS: Folic Acid 1 MG TAB PO SCH (08:19)
[2020-05-05] MEDS: Fludrocortisone Acetate 0.1 MG TAB PO SCH (08:19)
[2020-05-05] MEDS: ALPRAZolam 0.5 MG TAB PO SCH (08:25)
[2020-05-05 08:29] VITALS: TEMP 98.2
[2020-05-05 08:50] VITALS: BP 109/63
--- NOTE | 2020-05-05 15:04 | DIS ---
DATE OF ADMISSION: 05/03/2020 DATE OF DISCHARGE: 05/05/2020 No PCP. Left AMA on 05/05/2020. FINAL DIAGNOSES: Anemia of gastrointestinal blood loss, peptic ulcer disease, syncope, chronic obstructive pulmonary disease, hepatitis C, anxiety, depression , and posttraumatic stress disorder. DISCHARGE MEDICATIONS: None as the patient left AMA. Her normal home medicines are listed as 1. Hydrocodone 5/325 one every 6 hours as needed for pain. 2. Celexa 40 mg a day. 3. Folic acid one a day. 4. Risperdal 0.5 mg h.s. 5. Levothyroxine 100 mcg a day. 6. Alprazolam 1 mg t.i.d. 7. Budesonide/formoterol 160/4.5 two puffs b.i.d. 8. Florinef 0.1 mg a day. 9. Incruse Ellipta one inhalation daily. 10. Protonix 40 mg a day. 11. Midodrine 5 mg t.i.d. 12. Albuterol neb 0.63 ml q.6 hours p.r.n. 13. Ferrous sulfate 325 mg a day. ALLERGIES: SHE CLAIMS ALLERGY TO CODEINE, TORADOL, MIRTAZAPINE, OXYCODONE, TRAMADOL, AND ZOLPIDEM. CONSULTATIONS DURING THE HOSPITAL STAY: Dr. José Fraga, Gastroenterology. PROCEDURES: Operative note by Dr. José Fraga, EGD revealed a 9 mm ulcer in the stomach, post fundoplication of tight lower sphincter with a residual 5 cm hiatal hernia, erosive gastritis, erythematous duodenitis. Three biopsies were taken. The patient was admitted through the emergency room with claims of syncope, coffee-grounds emesis, and melenic stools. Hemoglobin was 9.7, white count 11.8 , platelet count 330,000. Comprehensive metabolic profile was unremarkable. She was placed in the hospital on IV PPI, which was transitioned to p.o. Followup laboratory; initial hemoglobin 9.7 followed by 9.5, 9.3, 8.6, 8.4 on the and then 7.4 today. Her PTH specimen revealed unremarkable duodenal mucosa. No evidence of celiac sprue. Unremarkable antral mucosa. No Helicobacter pylori. Superficially erosive gastritis. No evidence of dysplasia or malignancy. Today , the patient complained of some burning pain. Because her hemoglobin had dropped to 7.5, I told her I was going to keep her one more day and repeat her hemoglobin tomorrow. In review of her medicines, she was on iron and had an elevated iron level at 271. I discontinued the iron because it can cause gastritis, etc. I added Maalox to her twice a day PPI and discontinued her low-dose morphine. She had the nurse call me and stated she needed IV pain medicines. I had done an abdominal exam in the morning. It was completely benign. No tenderness, no focal findings, normal bowel sounds. I told the nurse to tell her I would be up in a bit to talk to her if she wanted to go to to [facility], I would talk to her about discharging or allowing her to go there. The nurse called me back and stated that the patient had told her she was a bitch and left AMA needless to say, no medicines were given. No followup has been arranged. Job ID: [id number] MTDD
--- NOTE | 2020-05-08 06:33 | PQF ---
Dear : Lane [place] Date 04/07/20 Please exercise your independent, professional judgment in responding to the clarification form. Clinical indicators are provided on the bottom of this form for your review Can you please further clarify the diagnosis of the patient? Please check appropriate box(es): [ ] Encephalopathy: Type: [ ] Acute [ ] Subacute [ ] Chronic Etiology: [ ] Hypertensive [ ] Metabolic [ ] Toxic [ ] Drug induced: [ ] Unspecified [ ] Other (please specify) [ x ] Other diagnosis please specify patient with chronic pain who takes narcotics [ ] Unable to determine In addition, please specify: Present on Admission (POA): [ ] Yes [ x] No [ ] Unable to determine Physician Signature: Date/Time: For continuity of documentation, please document condition throughout progress notes and discharge summary. Thank You. To be completed by CDI/Coding staff for physician review: Present Clinical Indicators - Signs / Symptoms / Labs Results and Location in Medical Record [ x ] She is somewhat confused now, slow to answer questions Consult pg.1 05/03 [ x ] Unclear if this is due to pain medication or if she is encephalopathic Consult pg.1 05/03 [ x ] Possible encephalopathy. She is slow and sleepy and falls asleep when not stimulated. This might just be due to pain medication Consult pg.2 05/03 [ x ] Ammonia Normal Hospitalist PN pg.6 05/04 [ x ] Anemia of GI blood, PUD, syncope DS pg.1 Present Risk Factors Results and Location in Medical Record [ x ] Post traumatic stress disorder DS pg.1 [ x ] COPD [ x ] Hepatitis C [ x ] Pulmonary hypertension [ x ] Anxiety [ x ] Gi Bleed Present Treatments Results and Location in Medical Record [ x ] Lactulose 20mg PO MAR [ x ] Ammonia monitoring Laboratory [ x ] IV Fluids MAR [ x ] CT Brain 05/03 05/03 [ x ] GI Consult Dr. Fraga 05/03 CDS/Record Changer Tester Signature: Jonn Stokes Phone #: [phone] olk [id number] Date 05/08/20 This is a permanent part of the Medical Record [facility]
[2020-05-09] MEDS ORDERED: Ergocalciferol 1.25 MG(50,000 UNITS) CAP PO SCH (12:00)
== END 2020-05-05 12:41 | disposition left against medical advice (07) | DRG 378 ==
LOC: ERS 18:44 → 2SW 05-03 02:05 → OBSVTOIN 05-03 18:27 → T4-B 05-05 12:00
PROVIDERS: ADMIT Internal Medicine; ATTEND Internal Medicine
PROC: 0DB98ZX Excision of Duodenum, Via Natural or Artificial Opening Endoscopic, Diagnostic (ICD-10-PCS; principal; 2020-05-04)
PROC: 0DB88ZX Excision of Small Intestine, Via Natural or Artificial Opening Endoscopic, Diagnostic (ICD-10-PCS; 2020-05-04)
PROC: 0DB78ZX Excision of Stomach, Pylorus, Via Natural or Artificial Opening Endoscopic, Diagnostic (ICD-10-PCS; 2020-05-04)
DX: K29.01 Acute gastritis with bleeding (principal); D62 Acute posthemorrhagic anemia; Z20.828 Contact with and (suspected) exposure to other viral communicable diseases; J44.9 Chronic obstructive pulmonary disease, unspecified; B18.2 Chronic viral hepatitis C; I27.20 Pulmonary hypertension, unspecified; F32.9 Major depressive disorder, single episode, unspecified; F43.10 Post-traumatic stress disorder, unspecified; F41.9 Anxiety disorder, unspecified; F17.220 Nicotine dependence, chewing tobacco, uncomplicated; K29.81 Duodenitis with bleeding; Z53.29 Procedure and treatment not carried out because of patient's decision for other reasons; Z90.710 Acquired absence of both cervix and uterus; Z90.49 Acquired absence of other specified parts of digestive tract; Z79.51 Long term (current) use of inhaled steroids; Z79.899 Other long term (current) drug therapy; Z88.5 Allergy status to narcotic agent; Z88.8 Allergy status to other drugs, medicaments and biological substances
CPT/HCPCS: 36415; 70450; 71045; 72125; 74177; 80053; 80306; 82140; 82274; 83540; 83550; 84484; 85025; 86850; 86900; 86901; 87635; 88305; 88312; 93005; 94640; 94664; 96361; 96367; 96375; 96376; C9113; G0378; J0500; J1200; J2270; J2550; J2704; J2765; J3475; Q9967; U0003

== ENCOUNTER 2020-05-10 11:58 | Emergency (ER) | payer MEDICARE, MEDICAID ==
--- NOTE | 2020-05-10 12:24 | RAD ---
XR Chest 1 View Portable HISTORY: Chest pain COMPARISON: 05/02/2020 FINDINGS: The heart size is normal. The lungs are well expanded without focal areas of consolidation, pneumothorax or pleural effusions. Moderate-sized hiatal hernia is again seen. IMPRESSION: No radiographic evidence of acute cardiopulmonary process.
[2020-05-10 13:26] LABS: #Basophils 0.1 thou/uL (0.0-0.2); #Eosinphils 0.3 thou/uL (0.0-0.7); #Lymphocytes 1.6 thou/uL (1.20-3.40); #Monocytes 0.4 thou/uL (0.11-0.59); #Neutrophils 5.1 thou/uL (1.40-6.50); %Eosinophils 3.6 % (0.0-10.0); %Lymphocytes 20.9 % (21.0-51.0); %Monocytes 5.7 % (0.0-10.0); %Neutrophils 68.9 % (42.0-75.0); Hemoglobin 10.7 g/dL (12.0-16.0); Mean Corpuscular HGB CONC 33.2 g/dL (32.0-36.0); Mean Corpuscular Hemoglobin 29.8 pg (27.0-31.0); Mean Corpuscular Volume 89.9 fL (78.0-98.0); Mean Platelet Volume 9.4 fL (7.4-10.4); Platelet Count 288 thou/uL (130-400); RBC Distribution Width 19.2 % (11.5-14.5); Red Blood Cell (RBC) Count 3.59 mill/uL (4.20-5.40); White Blood Cell (WBC) Count 7.4 thou/uL (4.8-10.8)
[2020-05-10 13:48] LABS: ALT (SGPT) 27 U/L (8-55); AST (SGOT) 26 U/L (5-34); Alkaline Phosphatase 49 U/L (40-110); Anion Gap 14 mmol/L (10-20); BUN (Urea Nitrogen) 16 mg/dL (9.8-20.1); Bilirubin, Total 0.2 mg/dL (0.2-1.2); CK (CPK) 81 U/L (29-168); Calc. Creatinine Clearance 0 mL/min (70-130); Calcium 9.4 mg/dL (7.8-10.44); Carbon Dioxide 23 mmol/L (22-29); Chloride 104 mmol/L (98-107); Estimated GFR-MDRD 73; Globulin 3.3 g/dL (2.4-3.5); Glucose 100 mg/dL (70-105); Lipase 72 U/L (8-78); Potassium 4.3 mmol/L (3.5-5.1); Protein, Total 7.3 g/dL (6.0-8.3); Sodium 137 mmol/L (136-145)
--- NOTE | 2020-05-12 14:14 | EKG ---
Test Reason : Blood Pressure : / mmHG Vent. Rate : 093 BPM Atrial Rate : 093 BPM P-R Int : 134 ms QRS Dur : 078 ms QT Int : 368 ms P-R-T Axes : 067 063 045 degrees QTc Int : 457 ms Normal sinus rhythm with sinus arrhythmia Normal ECG Confirmed by KRANTHI IBRAHIM, GINNA ([id number]), make up editor SANDRA BENNETT ([id number]) on 05/12/2020 2:13:54 PM Referred By: Confirmed By:GINNA CRISOSTOMO MD
== END 2020-05-10 14:20 | disposition home or self-care (01) ==
LOC: ERS 11:58
DX: R07.9 Chest pain, unspecified (principal); K74.60 Unspecified cirrhosis of liver; J44.9 Chronic obstructive pulmonary disease, unspecified; F41.9 Anxiety disorder, unspecified; F32.9 Major depressive disorder, single episode, unspecified; F43.10 Post-traumatic stress disorder, unspecified; F17.220 Nicotine dependence, chewing tobacco, uncomplicated; Z79.899 Other long term (current) drug therapy; Z79.51 Long term (current) use of inhaled steroids
CPT/HCPCS: 36415; 71045; 80053; 82550; 83690; 83880; 84484; 85025; 93005; 94760

== ENCOUNTER 2020-06-07 20:13 | Inpatient (IN) | payer MEDICARE, MEDICAID, OTHER ==
[2020-06-07 20:43] LABS: #Basophils 0.1 thou/uL (0.0-0.2); #Eosinphils 0.2 thou/uL (0.0-0.7); #Lymphocytes 2.4 thou/uL (1.20-3.40); #Monocytes 0.6 thou/uL (0.11-0.59); #Neutrophils 2.8 thou/uL (1.40-6.50); %Eosinophils 4.1 % (0.0-10.0); %Lymphocytes 39.7 % (21.0-51.0); %Monocytes 9.1 % (0.0-10.0); %Neutrophils 45.1 % (42.0-75.0); Hemoglobin 10.1 g/dL (12.0-16.0); Mean Corpuscular HGB CONC 32.6 g/dL (32.0-36.0); Mean Corpuscular Hemoglobin 29.6 pg (27.0-31.0); Mean Corpuscular Volume 90.6 fL (78.0-98.0); Mean Platelet Volume 8.3 fL (7.4-10.4); Platelet Count 316 thou/uL (130-400); RBC Distribution Width 19.1 % (11.5-14.5); Red Blood Cell (RBC) Count 3.42 mill/uL (4.20-5.40); White Blood Cell (WBC) Count 6.1 thou/uL (4.8-10.8)
[2020-06-07 20:46] LABS: Actual Bicarbonate (HCO3a) 18.6 mEq/L (22-28); Analyzer IN Cardio ER; Base Excess (BEa) -6.9 mEq/L (-2.0 to +3.0); CO2 Tension 37.5 mmHg (35.0-45.0); Calcium, Ionized (arterial) 1.17 mmol/L (1.12-1.30); Carboxyhemoglobin (COHb) 0.2 gm% (0.0-3.0); Hemoglobin (Hb) 10.3 g/dL (12.0-16.0); O2 Tension (PaO2), arterial 73.2 mmHg (80.0-100.0); Potassium - ABG Lab 3.65 mmol/L (3.70-5.30); pH, Arterial 7.31 (7.35-7.45)
[2020-06-07 20:48] LABS: ALV-art Gradient 29.655 mmHg (0-20); Puncture Site L RADIAL
[2020-06-07 20:59] LABS: ALT (SGPT) 9 U/L (8-55); AST (SGOT) 17 U/L (5-34); Albumin 3.7 g/dL (3.5-5.0); Alkaline Phosphatase 31 U/L (40-110); Anion Gap 17 mmol/L (10-20); BUN (Urea Nitrogen) 8 mg/dL (9.8-20.1); Bilirubin, Total 0.2 mg/dL (0.2-1.2); Calc. Creatinine Clearance 0 mL/min (70-130); Calcium 8.1 mg/dL (7.8-10.44); Carbon Dioxide 18 mmol/L (22-29); Chloride 112 mmol/L (98-107); Estimated GFR-MDRD 50; Globulin 2.6 g/dL (2.4-3.5); Glucose 99 mg/dL (70-105); Potassium 3.8 mmol/L (3.5-5.1); Protein, Total 6.3 g/dL (6.0-8.3); Sodium 143 mmol/L (136-145)
--- NOTE | 2020-06-07 21:02 | RAD ---
PORTABLE CHEST: History: COPD, shortness of breath Comparison: 05-31-2020 FINDINGS: Lungs appear clear of infiltrate. There is a fixed diaphragmatic hernia which is stable. Old right ri b fractures again noted. IMPRESSION: No acute process. POS: AGW
[2020-06-07 21:38] LABS: Acetaminophen Less than 6.0 mcg/mL (10.0-30.0); Alcohol 111 mg/dL (Less than 10); Salicylate Less than 8.0 mg/dL (15.0-30.0)
[2020-06-07] MEDS ORDERED: HYDROcodone/Acetaminophen 5/325 mg Tablet PO PRN (23:46)
[2020-06-08] MEDS ORDERED: Ondansetron PF 4 MG/2 ML Vial ONE (00:03)
[2020-06-08 00:41] LABS: Troponin I Less than 0.010 ng/mL (< 0.028)
--- NOTE | 2020-06-08 00:56 | HP ---
PRIMARY CARE PHYSICIAN: Dr. Grider. CHIEF COMPLAINT: Shortness of breath. HISTORY OF PRESENT ILLNESS: The patient is a 60-year-old female, past medical history significant for COPD, asthma, hepatitis C, and mitral valve regurgitation. She presents to the ER today for the chief complaint of difficulty breathing and chest pain. Patient states that she called EMS after experiencing a pressure in her chest that feels like a fire and had difficulty breathing with it. She states this shortness of breath has happened with other COPD exacerbations in the past. Patient states that the pain began while riding her horse today. She states they did no strenuous activities and she was just sitting while the horse was walking, but the pain started at that time. Patient does have a recent history of PE. She states that she has been compliant with her Eliquis. Patient does not currently use home oxygen. Patient does endorse that she had a drink of wine earlier in the day, but states that was no more than 8 ounces. En route to the hospital, the patient was in and out of consciousness. EMS provided DuoNeb, steroids, and magnesium. Since EMS treatment, she states her shortness of breath has improved, but states that the chest pain is still there. Upon arrival to her room, she appeared to be asleep and it took a minute to fully wake her up. She was slurring her speech a little during the interview. After leaving her room, she began to moan loudly due to the chest pain she stated she was having. Patient does have a history of opioid use and drug-seeking behavior. Today in the ER, they completed a chest x-ray, ABG, and lab work. PAST MEDICAL HISTORY: Asthma, COPD, GI disease, bowel obstruction, hepatitis C, mitral valve regurgitation, and borderline pulmonary hypertension. She also psych history of PTSD, anxiety, depression, previous inpatient psych admissions, including multiple suicide attempts. PAST SURGICAL HISTORY: hysterectomy, cholecystectomy, and hernia repair. ALLERGIES: CODEINE, REMERON, TORADOL, TRAMADOL, AND ZOLPIDEM. MEDICATIONS: The only medications stated currently are: 1. Alprazolam 0.5 mg three times a day. 2. Amlodipine 2.5 mg once a day. 3. Eliquis 2.5 mg twice a day, on her previous discharge paperwork it was stated this was to be 5mg twice a day so this will need to be verified once patient is able to communicate better SOCIAL HISTORY: Patient lives at home alone. She does drink daily, often times more than five drinks per day. She states that she does use marijuana, but no other drugs. Patient told the ER she does smoke cigarettes. She told me that she has never smoked and only lived with smokers. FAMILY HISTORY: Negative for anything pertinent at this time. REVIEW OF SYSTEMS: All other review of systems negative unless noted in the HPI. PHYSICAL EXAMINATION: VITAL SIGNS: Blood pressure 105/71, pulse 83, respiratory rate 20, temp 98.0, and O2 saturation 100% on room air. GENERAL: No signs of acute distress. Patient appears to be sleeping upon entry. HEENT: Head; atraumatic, normocephalic. EYES: Extraocular muscles intact. PERRLA. RESPIRATORY: Slight wheezing throughout. Chest expansion is equal. No rhonchi, no rales. CARDIOVASCULAR: Regular rate and rhythm. No murmurs, no rubs, and no gallops. Patient endorses chest pain. Pain is reproducible and worsens with palpation. EXTREMITIES: No cyanosis and no edema. NEUROLOGIC: Easily arousable. Some slurring noted with speech. IMAGING DATA: EKG shows normal sinus rhythm, 86 beats per minute. No ectopic beats, with a right bundle-branch block. Chest x-ray shows no acute process. LABORATORY DATA: White blood cell 6.1, hemoglobin 10.1, and hematocrit 31.0. Blood gas showed a pH of 7.31, pCO2 is 37.5, and PO2 of 73.2. Sodium 143, potassium 3.8, chloride 112, carbon dioxide 18, BUN 8, creatinine 1.11, GFR 50, glucose 99, magnesium 3, and alkaline phosphatase 31. Initial troponin unremarkable. BNP 72.3. Toxicology screen showed plasma alcohol at 111. IMPRESSION AND PLAN: 1. Chest pain. We will continue to monitor troponins and watch patient on telemetry. At this time, does not appear to be cardiac as the pain is reproducible and worse with palpation, but we will continue to monitor the patient. 2. Acute on chronic obstructive pulmonary disease exacerbation. Shortness of breath has resolved. We will provide scheduled neb treatments and monitor how she does throughout the evening. Oral steroids have been ordered. We will continue to monitor patient's vital signs throughout the night every 4 hours. 3. Acute alcohol intoxication. We will continue IV fluids at this time and follow how patient does throughout the evening. Her alcohol level should hopefully start coming down shortly. We will place the patient on ASE protocol to monitor for any withdrawals. She does have a significant history of alcohol consumption. 4. Anemia, does have a history of anemia but it appears that her hemoglobin and hematocrit are higher than her baseline. We will continue to monitor and redraw labs in the morning. 5. History of pulmonary embolism. Patient currently states that she has been compliant with her Eliquis for her pulmonary embolism. We will continue on that for DVT prophylaxis also and then GI prophylaxis will be covered with Pepcid. 5. Patient does wish to be a full code. She states her surrogate decision maker is her friend, Flaco Cynthia. Patient has been discussed with Dr. Bueno. Job ID: [id number] MTDD
[2020-06-08 01:05] VITALS: BMI 27.9
[2020-06-08] MEDS ORDERED: Acetaminophen 325 MG TAB PO PRN (01:15)
[2020-06-08] MEDS ORDERED: Ondansetron ODT 4 MG TAB SL PRN (01:15)
[2020-06-08] MEDS ORDERED: Sodium Chloride 0.9% 1,000 ML IV SCH (01:15)
[2020-06-08] MEDS ORDERED: Ondansetron PF 4 MG/2 ML Vial IVP PRN (01:15)
[2020-06-08] MEDS: Sodium Chloride 0.9% 1,000 ML IV SCH ×2 (01:45→14:47)
[2020-06-08] MEDS: HYDROcodone/Acetaminophen 5/325 mg Tablet PO PRN ×4 (01:46→17:33)
[2020-06-08 02:56] LABS: #Basophils 0.1 thou/uL (0.0-0.2); #Lymphocytes 0.5 thou/uL (1.20-3.40); #Neutrophils 4.5 thou/uL (1.40-6.50); %Eosinophils 0.3 % (0.0-10.0); %Lymphocytes 9.5 % (21.0-51.0); %Monocytes 0.4 % (0.0-10.0); %Neutrophils 87.7 % (42.0-75.0); Hemoglobin 9.8 g/dL (12.0-16.0); Mean Corpuscular HGB CONC 32.7 g/dL (32.0-36.0); Mean Corpuscular Hemoglobin 29.6 pg (27.0-31.0); Mean Corpuscular Volume 90.7 fL (78.0-98.0); Mean Platelet Volume 8.3 fL (7.4-10.4); Platelet Count 318 thou/uL (130-400); RBC Distribution Width 19.3 % (11.5-14.5); Red Blood Cell (RBC) Count 3.31 mill/uL (4.20-5.40); White Blood Cell (WBC) Count 5.2 thou/uL (4.8-10.8)
[2020-06-08] MEDS: Lidocaine Patch Removal 1 EACH TOP SCH (03:07)
[2020-06-08 03:21] LABS: Troponin I Less than 0.010 ng/mL (< 0.028)
[2020-06-08 03:33] LABS: Anion Gap 15 mmol/L (10-20); BUN (Urea Nitrogen) 10 mg/dL (9.8-20.1); Calc. Creatinine Clearance 72 mL/min (70-130); Calcium 7.9 mg/dL (7.8-10.44); Carbon Dioxide 15 mmol/L (22-29); Chloride 113 mmol/L (98-107); Estimated GFR-MDRD 56; Glucose 154 mg/dL (70-105); Potassium 4.1 mmol/L (3.5-5.1); Sodium 139 mmol/L (136-145)
[2020-06-08] MEDS: Famotidine 20 MG TAB PO SCH ×2 (08:32→22:48)
[2020-06-08] MEDS: predniSONE 20 MG TAB PO SCH (08:32)
[2020-06-08] MEDS ORDERED: Non-Formulary Item 1 EACH (Cholecalciferol (Vitamin D3) [Vitamin D3] 1,250 MCG Capsule) PO SCH (08:45)
[2020-06-08] MEDS ORDERED: Non-Formulary Item 1 EACH (Budesonide/Formoterol Fumarate [Budesonide-Formoterol 160-4.5] IH SCH (09:00)
[2020-06-08] MEDS ORDERED: Non-Formulary Item 1 EACH (Umeclidinium Bromide [Incruse Ellipta] 62.5 MCG Blst.W.Dev) IH SCH (09:00)
[2020-06-08] MEDS ORDERED: Folic Acid 1 MG TAB PO SCH (09:00)
[2020-06-08] MEDS ORDERED: FLU VACC QS2020-21(6MOS UP)/PF 60 MCG/0.5 ML SYRINGE IM ONE (09:00)
[2020-06-08] MEDS ORDERED: Non-Formulary Item 1 EACH (Ferrous Sulfate [Ferrous Sulfate] 325 MG Tablet) PO SCH (09:00)
[2020-06-08] MEDS ORDERED: Amlodipine 5 MG TAB PO SCH (09:00)
[2020-06-08] MEDS ORDERED: Levothyroxine Sodium 100 MCG TAB PO SCH (09:00)
[2020-06-08] MEDS: Apixaban 5 MG TAB PO SCH ×2 (11:21→22:47)
[2020-06-08] MEDS: Ferrous Sulfate 325 MG TAB PO SCH ×3 (11:21→22:48)
[2020-06-08] MEDS: Folic Acid 1 MG TAB PO SCH (11:27)
[2020-06-08] MEDS: Fludrocortisone Acetate 0.1 MG TAB PO SCH (11:27)
[2020-06-08] MEDS: FLUoxetine HCl 20 MG CAP PO SCH (11:27)
[2020-06-08] MEDS ORDERED: Ergocalciferol 1.25 MG(50,000 UNITS) CAP PO SCH (12:00)
[2020-06-08] MEDS: Midodrine HCl 5 MG TAB PO SCH ×3 (14:45→22:48)
[2020-06-08] MEDS: Lidocaine 5% Patch TD SCH (14:46)
[2020-06-08] MEDS ORDERED: Ketorolac Tromethamine 30 MG/ML VIAL IVP SCH (16:30)
--- NOTE | 2020-06-08 16:35 | RAD ---
XR Knee Lt 4 View STANDARD HISTORY: Fall, left knee pain FINDINGS: No fracture or dislocation is identified. Degenerative changes are seen in the medial tibiofemoral co mpartment.
[2020-06-08] MEDS ORDERED: predniSONE 20 MG TAB PO SCH (17:30)
--- NOTE | 2020-06-08 18:14 | PDOC.HOSPP ---
- Subjective Encounter Date: 06/08/20 Encounter Time: 18:13 Subjective: Patient seen for follow-up regarding chest pain. She denies any fevers or chills. She complains of left knee pain, reports that she fell a couple of days ago. - Objective Vital Signs & Weight: Vital Signs (12 hours) Temp Pulse Resp BP BP Pulse Ox 06/08/20 15:52 97.0 F L 62 18 129/78 97 06/08/20 11:21 97.6 F 60 18 131/80 100 06/08/20 11:20 67 06/08/20 11:16 67 16 99 06/08/20 09:07 125/81 06/08/20 07:54 94 L 06/08/20 07:31 98.2 F 75 16 125/81 94 L Weight Weight 167 lb 14.4 oz I&O: 06/07/20 06/08/20 06/09/20 06:59 06:59 06:59 Intake Total 615 1110 Output Total 800 400 Balance -185 710 Result Diagrams: 06/08/20 02:41 06/08/20 02:41 Additional Labs: I reviewed patient's labs and MAR EKG Reviewed by me: Yes (Telemetry: Normal sinus rhythm) Hospitalist ROS - Review of Systems Respiratory: denies: cough, shortness of breath, SOB with excertion, pleuritic pain, wheezing Cardiovascular: reports: chest pain. denies: palpitations, orthopnea, paroxysmal noc. dyspnea, edema, light headedness Gastrointestinal: denies: nausea, vomiting, abdominal pain, diarrhea, constipation, melena, hematochezia Musculoskeletal: reports: other (Left knee pain) - Medication Medications: Active Medications Generic Name Dose Route Start Last Admin Trade Name Freq PRN Reason Stop Dose Admin Hydrocodone Bitart/Acetaminophen 2 tab 06/07/20 23:46 06/08/20 17:33 Hydrocodone/Acetaminophen 5/325 Mg Tablet PO 2 tab Q4H PRN Administration Severe Pain (7-10) Albuterol/Ipratropium 3 ml 06/08/20 01:00 06/08/20 11:16 Ipratropium/Albuterol Sulfate 3 Ml Neb NEB 3 ml [id number] ALEJANDRINA Administration Apixaban 5 mg 06/08/20 09:00 06/08/20 11:21 Apixaban 5 Mg Tab PO 5 mg BID ALEJANDRINA Administration Ergocalciferol 1.25 mg 06/08/20 12:00 06/08/20 11:30 Ergocalciferol 1.25 Mg(50,000 Units) Cap PO Not Given Q7D ALEJANDRINA Famotidine 20 mg 06/08/20 09:00 06/08/20 08:32 Famotidine 20 Mg Tab PO 20 mg BID ALEJANDRINA Administration Ferrous Sulfate 325 mg 06/08/20 09:00 06/08/20 14:41 Ferrous Sulfate 325 Mg Tab PO 325 mg TID ALEJANDRINA Administration Fludrocortisone Acetate 0.1 mg 06/08/20 09:00 06/08/20 11:27 Fludrocortisone Acetate 0.1 Mg Tab PO 0.1 mg DAILY ALEJANDRINA Administration Fluoxetine HCl 20 mg 06/08/20 09:00 06/08/20 11:27 Fluoxetine Hcl 20 Mg Cap PO 20 mg DAILY ALEJANDRINA Administration Folic Acid 1 mg 06/08/20 09:00 06/08/20 11:27 Folic Acid 1 Mg Tab PO 1 mg DAILY ALEJANDRINA Administration Sodium Chloride 1,000 mls @ 75 mls/hr 06/07/20 23:45 06/08/20 14:47 Normal Saline 0.9% IV Not Given .[id number] ALEJANDRINA Lidocaine 1 patch 06/08/20 15:00 06/08/20 14:46 Lidocaine 5% Patch TD 1 patch 1500 ALEJANDRINA Administration Midodrine 5 mg 06/08/20 09:00 06/08/20 14:45 Midodrine Hcl 5 Mg Tab PO 5 mg TID ALEJANDRINA Administration Pantoprazole Sodium 40 mg 06/08/20 09:00 06/08/20 11:28 Pantoprazole 40 Mg Tab PO 40 mg DAILY ALEJANDRINA Administration Prednisone 40 mg 06/08/20 09:00 06/08/20 08:32 Prednisone 20 Mg Tab PO 40 mg DAILY ALEJANDRINA Administration Prednisone 40 mg 06/08/20 17:30 06/08/20 17:33 Prednisone 20 Mg Tab PO 06/08/20 19:30 40 mg NOW ALEJANDRINA Administration - Exam General Appearance: awake alert Eye: anicteric sclera ENT: moist mucosa Neck: supple Heart: RRR Respiratory: CTAB Gastrointestinal: soft, non-tender Extremities: no cyanosis Skin: no rashes Musculoskeletal: no muscle wasting Musculoskeletal - other findings: Reproducible chest wall tenderness Psychiatric: normal affect, normal behavior Hosp A/P (1) Chest pain Code(s): R07.9 - CHEST PAIN, UNSPECIFIED Status: Acute (2) History of COPD Code(s): Z87.09 - Status: Chronic - Plan Chest pain most likely secondary to musculoskeletal etiology. Cardiology service has been consulted. COPD stable. Check left knee x-rays to evaluate for fracture.
[2020-06-08] MEDS: Mometasone 200 MCG/Formoterol 5 MCG 120 PUFF INHALER INH SCH (18:33)
[2020-06-08 19:11] LABS: SARS-CoV-2 MS2 Positive; SARS-CoV-2 N Gene Negative; SARS-CoV-2 S Gene Negative; SARS-CoV-2 by NAA Not Detected (NotDetected); SARS-CoV-2 orf1ab Negative
--- NOTE | 2020-06-08 23:56 | CON ---
DATE OF CONSULTATION: 06/08/2020 REASON FOR CONSULTATION: Chest pain and history of recent pulmonary emboli. HISTORY OF PRESENT ILLNESS: Ms. Burciaga is a 60-year-old woman. The patient is recently diagnosed with pulmonary embolism. She was given Eliquis 2.5 mg twice a day, but then apparently had recurrent pulmonary embolism, was admitted here. The dose was increased to 5 mg twice a day. The patient came back to the hospital complaining of chest pain duplicated with palpation of her ribs and has been admitted. She also has COPD. The patient has a history of anemia in the past. The patient also has a history of mitral valve regurgitation and pulmonary hypertension she tells me. There is a psychiatric history of PTSD, anxiety, and depression. She has had previous inpatient psych admissions including multiple suicide attempts according to the notes. PAST SURGICAL HISTORY: Hysterectomy and cholecystectomy. ALLERGIES: TO CODEINE, REMERON. IT SOUNDS LIKE ORAL TORADOL UPSET HER STOMACH. MEDICATIONS: 1. Amlodipine 2.5 mg a day. 2. Eliquis 5 mg twice a day. 3. Midodrine 5 mg three times a day. She said a lot of these medicines are listed in her allergies seemed upset her stomach including tramadol, oxycodone, codeine. REVIEW OF SYSTEMS: CONSTITUTIONAL: No significant weight gain or loss. VISION: No changes. HEARING: No changes. PULMONARY: No cough or wheezing. GASTROINTESTINAL: No nausea, vomiting, or diarrhea. SKIN: No rashes. NEUROLOGIC: No unilateral weakness or numbness. PSYCHIATRIC: No unusual depression or anxiety. PHYSICAL EXAMINATION: GENERAL: This is a 60-year-old woman, in no distress. She does says her chest really hurts, especially when she turn certain directions. VITAL SIGNS: Blood pressure 129/78 and pulse 62 and regular. LUNGS: Clear. CARDIAC: Normal S1 and normal S2. ABDOMEN: Soft and nontender. EXTREMITIES: Warm and dry. No clubbing or cyanosis. There is no edema. Peripheral pulses are present. DIAGNOSTIC STUDIES: EKG reveals a right bundle-branch block. Cardiac enzymes are all negative. Toxicology, her plasma alcohol level is elevated. Liver function tests were normal. ASSESSMENT: 1. Musculoskeletal chest pain. 2. Recent pulmonary embolism. 3. History of chronic obstructive pulmonary disease. 4. Psychiatric difficulties as outlined above. 5. History of anemia according to the patient. 6. Anti-inflammatories appeared upset her stomach when she takes them orally. PLAN: 1. Give her Toradol tonight and then tomorrow morning. 2. Echocardiogram to evaluate left ventricular function, right ventricular function, and pulmonary artery pressures. Job ID: [id number]
[2020-06-09] MEDS: HYDROcodone/Acetaminophen 5/325 mg Tablet PO PRN (01:09)
[2020-06-09] MEDS ORDERED: Melatonin 3 MG TAB PO PRN (02:02)
[2020-06-09] MEDS: Ondansetron PF 4 MG/2 ML Vial IVP PRN ×4 (03:14→23:36)
[2020-06-09 05:05] LABS: #Lymphocytes 0.7 thou/uL (1.20-3.40); #Monocytes 0.4 thou/uL (0.11-0.59); #Neutrophils 8.8 thou/uL (1.40-6.50); %Basophils 0.2 % (0.0-1.0); %Eosinophils 0.1 % (0.0-10.0); %Lymphocytes 7.3 % (21.0-51.0); %Monocytes 3.9 % (0.0-10.0); %Neutrophils 88.5 % (42.0-75.0); Hemoglobin 9.4 g/dL (12.0-16.0); Mean Corpuscular HGB CONC 32.6 g/dL (32.0-36.0); Mean Corpuscular Hemoglobin 29.8 pg (27.0-31.0); Mean Corpuscular Volume 91.3 fL (78.0-98.0); Mean Platelet Volume 8.7 fL (7.4-10.4); Platelet Count 290 thou/uL (130-400); RBC Distribution Width 19.7 % (11.5-14.5); Red Blood Cell (RBC) Count 3.15 mill/uL (4.20-5.40); White Blood Cell (WBC) Count 9.9 thou/uL (4.8-10.8)
[2020-06-09 05:30] LABS: Anion Gap 13 mmol/L (10-20); BUN (Urea Nitrogen) 12 mg/dL (9.8-20.1); Calc. Creatinine Clearance 92 mL/min (70-130); Calcium 8.8 mg/dL (7.8-10.44); Carbon Dioxide 21 mmol/L (22-29); Chloride 106 mmol/L (98-107); Estimated GFR-MDRD 74; Glucose 160 mg/dL (70-105); Iron 228 ug/dL (50-170); Iron Binding Capacity, Total 243 mcg/dL (265-497); Sodium 136 mmol/L (136-145)
[2020-06-09] MEDS ORDERED: Ketorolac Tromethamine 30 MG/ML VIAL IVP SCH (06:00)
[2020-06-09] MEDS: Levothyroxine Sodium 100 MCG TAB PO SCH (06:15)
[2020-06-09] MEDS: Mometasone 200 MCG/Formoterol 5 MCG 120 PUFF INHALER INH SCH ×2 (06:29→18:48)
[2020-06-09] MEDS: Fludrocortisone Acetate 0.1 MG TAB PO SCH (08:54)
[2020-06-09] MEDS: FLUoxetine HCl 20 MG CAP PO SCH (08:54)
[2020-06-09] MEDS: Ferrous Sulfate 325 MG TAB PO SCH ×2 (08:54→17:20)
[2020-06-09] MEDS: Famotidine 20 MG TAB PO SCH ×2 (08:54→20:04)
[2020-06-09] MEDS: Folic Acid 1 MG TAB PO SCH (08:54)
[2020-06-09] MEDS: predniSONE 20 MG TAB PO SCH (08:55)
[2020-06-09] MEDS: Apixaban 5 MG TAB PO SCH ×2 (08:55→20:03)
[2020-06-09] MEDS ORDERED: Morphine 2 MG/ML VIAL SLOW IVP SCH (09:00)
[2020-06-09] MEDS ORDERED: ALPRAZolam 0.25 MG TAB PO SCH (09:15)
[2020-06-09] MEDS ORDERED: Morphine 4 MG/ML VIAL SLOW IVP SCH (09:15)
--- NOTE | 2020-06-09 09:46 | PRG ---
DATE OF SERVICE: 06/09/2020 SUBJECTIVE: Patrica continues to complain of pain. Some of her pain is clearly musculoskeletal, some appears to be epigastric. OBJECTIVE: VITAL SIGNS: Blood pressure 142/80, pulse 68 and regular. LUNGS: Clear. CARDIAC: Normal S1, normal S2. No murmur, rub, or gallop. ABDOMEN: Soft, nontender. EXTREMITIES: No edema. DIAGNOSTIC STUDIES: Echocardiogram was done. The ejection fraction is normal. The left atrial size is normal. The mitral valve has mild mitral insufficiency. There is [id number] tricuspid insufficiency with [id number]-[id number] elevation of pulmonary artery pressure. LABORATORY DATA: The patient's iron levels are high at 228. Her ferritin level is low at 18.8, compatible with iron deficiency anemia. Her hemoglobin has dropped to 9.4. ASSESSMENT: 1. Recurrent pulmonary embolism. 2. Noncardiac chest pain. 3. Mild mitral insufficiency. 4. History of vasovagal syncope per the patient. 5. History of previous upper gastrointestinal surgeries. PLAN: 1. We will go ahead and reduce oral iron. She said she has been told that she did not absorb it in the past. It is a common problem. 2. Give her intravenous iron. 3. Going to do stress testing and I think the patient's pain is cardiac. Job ID: [id number]
[2020-06-09] MEDS: Midodrine HCl 5 MG TAB PO SCH (09:53)
[2020-06-09] MEDS: Iron, Sodium Ferric Gluconate 250 MG in Sodium Chloride 0.9% 100 ML IVPB SCH ×2 (09:53→21:17)
[2020-06-09] MEDS ORDERED: Regadenoson 0.4 MG/5 ML SYRINGE ONE (13:18)
--- NOTE | 2020-06-09 14:18 | PDOC.HOSPP ---
- Subjective Encounter Date: 06/09/20 Encounter Time: 10:00 Subjective: Patient seen for follow-up regarding chest pain. Reports ongoing chest pain. - Objective Vital Signs & Weight: Vital Signs (12 hours) Temp Pulse Resp BP Pulse Ox 06/09/20 11:43 98.4 F 66 16 147/89 H 95 06/09/20 07:56 97.9 F 68 18 142/82 H 94 L 06/09/20 06:28 72 12 94 L 06/09/20 03:15 98.5 F 71 17 149/89 H 94 L Weight Weight 170 lb 3.2 oz I&O: 06/08/20 06/09/20 06/10/20 06:59 06:59 06:59 Intake Total 615 1720 Output Total 800 1300 1750 Balance -185 420 -1750 Result Diagrams: 06/09/20 04:31 06/09/20 04:31 Additional Labs: I reviewed patient's labs and MAR EKG Reviewed by me: Yes (Telemetry: Normal sinus rhythm) Hospitalist ROS - Review of Systems Cardiovascular: reports: chest pain. denies: palpitations, orthopnea, paroxysmal noc. dyspnea, edema, light headedness Gastrointestinal: denies: nausea, vomiting, abdominal pain, diarrhea, constipation, melena, hematochezia - Medication Medications: Active Medications Generic Name Dose Route Start Last Admin Trade Name Freq PRN Reason Stop Dose Admin Hydrocodone Bitart/Acetaminophen 2 tab 06/07/20 23:46 06/09/20 01:09 Hydrocodone/Acetaminophen 5/325 Mg Tablet PO 2 tab Q4H PRN Administration Severe Pain (7-10) Albuterol/Ipratropium 3 ml 06/08/20 01:00 06/09/20 13:38 Ipratropium/Albuterol Sulfate 3 Ml Neb NEB Not Given [id number] ALEJANDRINA Apixaban 5 mg 06/08/20 09:00 06/09/20 08:55 Apixaban 5 Mg Tab PO 5 mg BID ALEJANDRINA Administration Ergocalciferol 1.25 mg 06/08/20 12:00 06/08/20 11:30 Ergocalciferol 1.25 Mg(50,000 Units) Cap PO Not Given Q7D ALEJANDRINA Famotidine 20 mg 06/08/20 09:00 06/09/20 08:54 Famotidine 20 Mg Tab PO 20 mg BID ALEJANDRINA Administration Fludrocortisone Acetate 0.1 mg 06/08/20 09:00 06/09/20 08:54 Fludrocortisone Acetate 0.1 Mg Tab PO 0.1 mg DAILY ALEJANDRINA Administration Fluoxetine HCl 20 mg 06/08/20 09:00 06/09/20 08:54 Fluoxetine Hcl 20 Mg Cap PO 20 mg DAILY ALEJANDRINA Administration Folic Acid 1 mg 06/08/20 09:00 06/09/20 08:54 Folic Acid 1 Mg Tab PO 1 mg DAILY ALEJANDRINA Administration Ferric Sodium Gluconate 120 mls @ 60 mls/hr 06/09/20 10:00 06/09/20 09:53 Complex 250 mg/ Sodium IVPB 06/09/20 23:59 120 mls Chloride Q12H ALEJANDRINA Administration Levothyroxine Sodium 100 mcg 06/09/20 06:00 06/09/20 06:15 Levothyroxine Sodium 100 Mcg Tab PO 100 mcg 0600 ALEJANDRINA Administration Lidocaine 1 patch 06/08/20 15:00 06/08/20 14:46 Lidocaine 5% Patch TD 1 patch 1500 ALEJANDRINA Administration Melatonin 3 mg 06/09/20 02:02 06/09/20 03:14 Melatonin 3 Mg Tab PO 3 mg HS PRN Administration Insomnia Midodrine 5 mg 06/08/20 09:00 06/09/20 09:53 Midodrine Hcl 5 Mg Tab PO Not Given TID COUNTS INCLUDE 234 BEDS AT [facility] Miscellaneous Medication 1 each 06/09/20 03:00 06/08/20 03:07 Lidocaine Patch Removal 1 Each TOP 1 each 0300 ALEJANDRINA Administration Mometasone Furoate/Formoterol Fumar 2 puff 06/08/20 18:30 06/09/20 06:29 Mometasone 200 Mcg/Formoterol 5 Mcg 120 Puff Inhaler INH 2 puff BID-RT ALEJANDRINA Administration Ondansetron HCl 4 mg 06/09/20 02:49 06/09/20 10:55 Ondansetron Pf 4 Mg/2 Ml Vial IVP 4 mg Q6H PRN Administration Nausea/Vomiting Pantoprazole Sodium 40 mg 06/08/20 09:00 06/09/20 08:55 Pantoprazole 40 Mg Tab PO 40 mg DAILY ALEJANDRINA Administration Prednisone 40 mg 06/08/20 09:00 06/09/20 08:55 Prednisone 20 Mg Tab PO 40 mg DAILY ALEJANDRINA Administration Sodium Chloride 10 ml 10/05/20 01:15 06/09/20 11:00 Flush - Normal Saline 10 Ml Syringe IVF 10 ml PRN PRN Administration Saline Flush - Exam General Appearance: awake alert Eye: anicteric sclera ENT: moist mucosa Neck: supple Heart: RRR Respiratory: CTAB Gastrointestinal: soft, non-tender Skin: no rashes Psychiatric: normal affect, normal behavior Hosp A/P (1) Chest pain Code(s): R07.9 - CHEST PAIN, UNSPECIFIED Status: Acute (2) History of COPD Code(s): Z87.09 - PERSONAL HISTORY OF OTHER DISEASES OF THE RESPIRATORY SYSTEM Status: Chronic - Plan Patient is awaiting stress test. COPD stable. No fracture on left knee x-rays.
--- NOTE | 2020-06-09 15:30 | NM ---
NUCLEAR MEDICINE CARDIAC MYOCARDIAL PERFUSION SPECT EJECTION FRACTION STUDY WALL MOTION CINE: DATE: 06/09/2020 HISTORY: 60-year-old female smoker with COPD presents with chest pain TECHNIQUE: Number of days: 1 Rest study: Technetium 99m-sestamibi (Cardiolite) dose: 10.2 mCi Pharmacologic stress: Lexiscan dose: 0.4 mg Stress study: Technetium 99m-sestamibi (Cardiolite) dose: 27.7 mCi FINDINGS: CARDIAC (MYOCARDIAL PERFUSION) SPECT Subtle region of apparently mildly decreased uptake in the anterior wall on the stress images only, p robably represents attenuation artifact. There are no convincing reversible myocardial perfusion defects. EJECTION FRACTION STUDY Left ventricular EF = 64 % WALL MOTION CINE Normal IMPRESSION: No compelling evidence of reversible ischemia.
[2020-06-09] MEDS: Lidocaine 5% Patch TD SCH (15:43)
[2020-06-09] MEDS: Morphine 2 MG/ML VIAL SLOW IVP PRN ×2 (17:16→23:35)
--- NOTE | 2020-06-09 17:23 | PDOC.EVN ---
Event Note - Event Note Event Note: Received communication from Dr. Mely Nichols with [facility] that patient meets inpatient criteria. Will change status to inpatient.
[2020-06-09] MEDS ORDERED: Midodrine HCl 5 MG TAB PO SCH (21:00)
--- NOTE | 2020-06-10 01:33 | DIS ---
DATE OF ADMISSION: 06/08/2020 DATE OF DISCHARGE: 06/09/2020 PRIMARY CARE PROVIDER: Unknown. DISCHARGE DIAGNOSES: 1. Chest pain. 2. Chest pain most likely secondary to musculoskeletal etiology. CONDITION OF PATIENT ON THE DAY OF DISCHARGE: Stable. I assessed Ms. Burciaga on the day of discharge. She denies any fevers or chills. Vital signs are stable. S1 and S2 are heard, regular. Lungs are clear to auscultation bilaterally. HOSPITAL COURSE: Ms. Burciaga is a pleasant 60-year-old lady, who was admitted to [facility] on June 07, 2020, for chest pain. She was seen by Cardiology Service. Her chest pain was reproducible and was most likely secondary to musculoskeletal etiology. It improved with pain medications. She is being discharged home in a stable condition. POST ACUTE CARE FOLLOWUP: With primary care provider in 3 days. ACTIVITY: As tolerated. DIET: Heart healthy. DISCHARGE DESTINATION: Home. No change was made to her pre-admission home medications. Total amount of time spent coordinating discharge: Twenty five minutes. Job ID: [id number] [facility]
[2020-06-10] MEDS: Levothyroxine Sodium 100 MCG TAB PO SCH (04:19)
[2020-06-10] MEDS: Lidocaine Patch Removal 1 EACH TOP SCH (06:00)
[2020-06-10] MEDS: Ondansetron PF 4 MG/2 ML Vial IVP PRN ×2 (06:25→12:12)
[2020-06-10] MEDS: Morphine 2 MG/ML VIAL SLOW IVP PRN ×2 (06:25→12:12)
[2020-06-10] MEDS: Mometasone 200 MCG/Formoterol 5 MCG 120 PUFF INHALER INH SCH (07:33)
--- NOTE | 2020-06-10 09:25 | PRG ---
DATE OF SERVICE: 06/10/2020 SUBJECTIVE: Patrica states she just does not feel well overall. She is up walking around when not in bed. OBJECTIVE: VITAL SIGNS: Her blood pressure most recently 115/71, pulse 86. LUNGS: Clear. CARDIAC: Normal S1, normal S2. DIAGNOSTIC STUDIES: To review the situation, the patient had an echocardiogram which showed only very mild mitral regurgitation and really only [id number] elevation of pulmonary artery pressure. She has had recent pulmonary embolism bilateral as outlined on the CT scan done on 05/31/2020. ASSESSMENT: 1. Chest wall pain. 2. History of esophageal reflux and hiatal hernia with previous surgery. 3. Stress test was thought to show likely attenuation artifact. 4. Chest pain prolonged with normal cardiac enzymes and no EKG changes. 5. History of syncope, thought to be possibly orthostatic, that is why she was on midodrine. The midodrine is on hold now. PLAN: 1. Get her up and around. 2. Continue apixaban. 3. She got IV iron. She does have a history of GI bleeding including recent upper GI bleeding. 4. The abdominal pain could be related to iron. We will change this out to once a day. 5. Check blood counts tomorrow. Long-term prognosis is guarded in this patient. She has multiple medical problems, especially in view of the pulmonary embolism of unclear etiology and history of GI bleeding. The chest pain does not sound cardiac. The pulmonary artery pressure elevation is only mild that may be related to the recent pulmonary embolism, the left ventricular looks normal. We would not recommend cardiac catheterization. We will have to interrupt the anticoagulation, especially in view of the recent pulmonary embolism with a large amount of thrombus burden, would not be appropriate to take that risk. Long-term prognosis of this patient is likely guarded with likelihood of further admission is high probability. Job ID: [id number] MTDD
[2020-06-10] MEDS ORDERED: Magnesium Citrate 300 ML BOT PO SCH (09:45)
[2020-06-10] MEDS: predniSONE 20 MG TAB PO SCH (10:48)
[2020-06-10] MEDS: Famotidine 20 MG TAB PO SCH (10:48)
[2020-06-10] MEDS: Folic Acid 1 MG TAB PO SCH (10:48)
[2020-06-10] MEDS: Apixaban 5 MG TAB PO SCH (10:48)
[2020-06-10] MEDS: Fludrocortisone Acetate 0.1 MG TAB PO SCH (10:48)
[2020-06-10] MEDS: FLUoxetine HCl 20 MG CAP PO SCH (10:48)
[2020-06-10] MEDS: Ferrous Sulfate 325 MG TAB PO SCH (11:01)
[2020-06-10 11:45] VITALS: BP 131/85; TEMP 98.2
[2020-06-11] MEDS ORDERED: Ferrous Sulfate 325 MG TAB PO SCH (08:00)
--- NOTE | 2020-06-11 12:16 | DIS ---
DATE OF ADMISSION: 06/08/2020 DATE OF DISCHARGE: 06/10/2020 PRIMARY CARE PROVIDER: Dr. Madelaine Srivastava. DISCHARGE DIAGNOSES: 1. Chest pain. 2. Chest pain most likely secondary to musculoskeletal etiology. CONDITION OF PATIENT ON THE DAY OF DISCHARGE: Stable. I assessed Ms. Burciaga on the day of discharge. She reports chest pain has improved. Vital signs are stable. S1 and S2 are heard, regular. Lungs are clear to auscultation bilaterally. CONSULTATIONS DURING THIS HOSPITALIZATION: Cardiology, Dr. Senior. HOSPITAL COURSE: Ms. Burciaga is a pleasant 60-year-old lady, who was admitted to [facility] on June 08, 2020, for chest pain that was reproducible to palpation. She was seen by Cardiology Service. 2D echocardiogram showed left ventricular ejection fraction of 60% to 65% and mild elevation of pulmonary artery pressure. She went on to have a nuclear stress test, which showed left ventricular ejection fraction of 64% and no compelling evidence of reversible ischemia. She continued to improve clinically. She also received intravenous iron. Her ferrous sulfate dose was decreased to one time daily. Otherwise, no change was made to her pre-admission home medications. She is being discharged home in a stable condition. POST ACUTE CARE FOLLOWUP: With primary care provider in 3 days. ACTIVITY: As tolerated. DIET: Heart healthy. DISCHARGE DESTINATION: Home. TIME SPENT: Total amount of time spent coordinating this discharge 25 minutes. Job ID: [id number]
--- NOTE | 2020-06-12 06:21 | PQF ---
CLINICAL DOCUMENTATION CLARIFICATION FORM: Dear : Lew Brady Date / Time: 06/12/20619 Please exercise your independent, professional judgment in responding to the clarification form. Clinical indicators are provided on the bottom of this form for your review In your clinical opinion based on clinical findings below, can you please specify Alcohol intoxication if Please check appropriate box(es): [ ] Alcohol intoxication Abuse with mood-induced disorder [ ] Alcohol intoxication Dependence with mood-induced disorder [ x ] Alcohol intoxication Abuse [ ] Alcohol intoxication Dependence [ ] Other diagnosis [ ] Unable to determine Physician Signature: Date/Time: For continuity of documentation, please document condition throughout progress notes and discharge summary. Thank You. To be completed by CDI/Coding staff for physician review: Present Clinical Indicators - Signs / Symptoms / Labs Results and Location in Medical Record [X] BP110/84, Pulse 76, Resp 18, Temp 97.8 Vital signs 06/08 [X] Toxicology: Plasma Alcohol 111 Laboratory 06/07 [X] Pt does endorse that she had drink a wine earlier in the day H&P p1 [place] [employer] [X] Acute alcoholic intoxication H&P p3 [place] [employer] Present Risk Factors Results and Location in Medical Record [X] PTSD H&P p1 [place] [employer] [X] Anxiety H&P p1 [place] [employer] [X] Depression H&P p1 [place] [employer] [X] Hx of multiple suicide attempts H&P p1 [place] [employer] [X] Smoker H&P p2 [place] [employer] Present Treatments Results and Location in Medical Record [X] Xanax 0.25 mg oral MAR 06/09 [X] Prozax 20 mg oral MAR 06/08 [X] Folvite 1 mg oral MAR 06/08 [X] IVF NS 1L NOV 11 [X] Toxicology Laboratory 06/07 CDS/Incident Coordinator Signature: Tawanna Rubi Janet Phone #: ext [phone] Date/Time: 06/12/2020619 This is a permanent part of the Medical Record [facility]
== END 2020-06-10 16:30 | disposition home or self-care (01) | DRG 313 ==
LOC: ERS 20:13 → 2SW 06-08 00:56 → OBSVTOIN 06-08 00:56
PROVIDERS: ADMIT Internal Medicine; ATTEND Internal Medicine
DX: R07.89 Other chest pain (principal); J44.1 Chronic obstructive pulmonary disease with (acute) exacerbation; Z20.828 Contact with and (suspected) exposure to other viral communicable diseases; F41.9 Anxiety disorder, unspecified; F32.9 Major depressive disorder, single episode, unspecified; F43.10 Post-traumatic stress disorder, unspecified; F17.210 Nicotine dependence, cigarettes, uncomplicated; F17.220 Nicotine dependence, chewing tobacco, uncomplicated; I34.0 Nonrheumatic mitral (valve) insufficiency; I27.20 Pulmonary hypertension, unspecified; F10.129 Alcohol abuse with intoxication, unspecified; Z23 Encounter for immunization; Z90.49 Acquired absence of other specified parts of digestive tract; Z90.710 Acquired absence of both cervix and uterus; Z79.899 Other long term (current) drug therapy; Z79.01 Long term (current) use of anticoagulants; Z86.711 Personal history of pulmonary embolism; Z88.8 Allergy status to other drugs, medicaments and biological substances
CPT/HCPCS: 36415; 71045; 78452; 80048; 80053; 80307; 82728; 82805; 83540; 83550; 83735; 83880; 84484; 85025; 87635; 90471; 90662; 93005; 93017; 93306; 94640; 96361; 96374; 96375; 96376; A9500; G0008; G0378; J2270; J2405; J2785; J2916; J3490; J7512; J7620; U0003

== ENCOUNTER 2020-07-13 17:04 | Emergency (ER) | payer MEDICARE, MEDICAID ==
--- NOTE | 2020-07-13 17:48 | RAD ---
XR Chest 1 View Portable History: Chest pain Comparison: Radiograph June 07, 2020 Findings: Large hiatal hernia. Lungs are without pneumothorax, effusion or consolidation. Impression: Large hiatal hernia. No other acute intrathoracic abnormality.
[2020-07-13 18:48] LABS: #Basophils 0.1 thou/uL (0.0-0.2); #Eosinphils 0.1 thou/uL (0.0-0.7); #Lymphocytes 1.6 thou/uL (1.20-3.40); #Monocytes 0.4 thou/uL (0.11-0.59); #Neutrophils 2.8 thou/uL (1.40-6.50); %Basophils 1.4 % (0.0-1.0); %Eosinophils 2.7 % (0.0-10.0); %Lymphocytes 32.4 % (21.0-51.0); %Monocytes 8.1 % (0.0-10.0); %Neutrophils 55.4 % (42.0-75.0); Hemoglobin 12.1 g/dL (12.0-16.0); Mean Corpuscular HGB CONC 33.2 g/dL (32.0-36.0); Mean Corpuscular Hemoglobin 32.7 pg (27.0-31.0); Mean Corpuscular Volume 98.6 fL (78.0-98.0); Mean Platelet Volume 8.8 fL (7.4-10.4); Platelet Count 258 thou/uL (130-400); RBC Distribution Width 17.7 % (11.5-14.5)
[2020-07-13 19:25] LABS: ALT (SGPT) 11 U/L (8-55); AST (SGOT) 13 U/L (5-34); Alkaline Phosphatase 42 U/L (40-110); Anion Gap 16 mmol/L (10-20); BUN (Urea Nitrogen) 8 mg/dL (9.8-20.1); Bilirubin, Total 0.2 mg/dL (0.2-1.2); CK (CPK) 50 U/L (29-168); Calc. Creatinine Clearance 0 mL/min (70-130); Calcium 9.3 mg/dL (7.8-10.44); Carbon Dioxide 22 mmol/L (22-29); Chloride 106 mmol/L (98-107); Estimated GFR-MDRD 85; Globulin 2.9 g/dL (2.4-3.5); Glucose 99 mg/dL (70-105); Lipase 25 U/L (8-78); Potassium 3.9 mmol/L (3.5-5.1); Protein, Total 6.9 g/dL (6.0-8.3); Sodium 141 mmol/L (136-145)
== END 2020-07-13 19:33 | disposition left against medical advice (07) ==
LOC: ERS 17:04
DX: Z53.21 Procedure and treatment not carried out due to patient leaving prior to being seen by health care provider (principal)
CPT/HCPCS: 36415; 71045; 80053; 82550; 83690; 84484; 85025; 93005

== ENCOUNTER 2020-09-11 17:13 | Observation (INO) | payer MEDICARE, MEDICAID ==
[~2020-09-11 17:13] MED LIST changes: +Iopamidol 370 76% 100 ML VIAL ONE; -Iopamidol-370 76% 500 ML 1 ML ONE
--- NOTE | 2020-09-11 18:08 | RAD ---
PORTABLE CHEST: 09/11/20 HISTORY: Mid sternal chest pain. COMPARISON: 07/13/20 exam. Heart size is within normal limits. Old right rib fractures are seen. Minimally increased interstitia l changes in the bases are present, slightly more prominent in the left. IMPRESSION: Minimally increased interstitial lung markings. Mainly changes within the left base. I cannot exclude this as some early infiltrative lung change. Clinical correlation would be recommended. It does appe ar to represent a difference as compared to the previous exam. Minimal changes in the right base is p robably just related to atelectasis. POS: OFF
[2020-09-11 18:23] LABS: #Basophils 0.1 thou/uL (0.0-0.2); #Eosinphils 0.2 thou/uL (0.0-0.7); #Lymphocytes 1.6 thou/uL (1.20-3.40); #Monocytes 0.5 thou/uL (0.11-0.59); #Neutrophils 4.8 thou/uL (1.40-6.50); %Basophils 0.8 % (0.0-1.0); %Eosinophils 2.2 % (0.0-10.0); %Lymphocytes 22.8 % (21.0-51.0); %Monocytes 7.2 % (0.0-10.0); %Neutrophils 66.9 % (42.0-75.0); Hemoglobin 10.4 g/dL (12.0-16.0); Mean Corpuscular HGB CONC 33.9 g/dL (32.0-36.0); Mean Corpuscular Volume 97.3 fL (78.0-98.0); Mean Platelet Volume 8.3 fL (7.4-10.4); Platelet Count 239 thou/uL (130-400); RBC Distribution Width 14.3 % (11.5-14.5); Red Blood Cell (RBC) Count 3.16 mill/uL (4.20-5.40); White Blood Cell (WBC) Count 7.1 thou/uL (4.8-10.8)
[2020-09-11] MEDS ORDERED: Morphine 4 MG/ML VIAL ONE (18:44)
[2020-09-11] MEDS ORDERED: Ondansetron PF 4 MG/2 ML Vial ONE (18:44)
[2020-09-11 18:45] LABS: ALT (SGPT) Less than 7 U/L (8-55); AST (SGOT) 10 U/L (5-34); Albumin 3.7 g/dL (3.5-5.0); Alkaline Phosphatase 43 U/L (40-110); Anion Gap 14 mmol/L (10-20); BUN (Urea Nitrogen) 11 mg/dL (9.8-20.1); Bilirubin, Total 0.2 mg/dL (0.2-1.2); CK (CPK) 118 U/L (29-168); Calc. Creatinine Clearance 0 mL/min (70-130); Calcium 8.7 mg/dL (7.8-10.44); Carbon Dioxide 25 mmol/L (22-29); Chloride 105 mmol/L (98-107); Globulin 2.6 g/dL (2.4-3.5); Glucose 78 mg/dL (70-105); Potassium 3.6 mmol/L (3.5-5.1); Protein, Total 6.3 g/dL (6.0-8.3); Sodium 140 mmol/L (136-145)
--- NOTE | 2020-09-11 19:33 | CT ---
CT ANGIO OF CHEST PERFORMED WITH INTRAVENOUS CONTRAST ENHANCEMENT WITH 3D RECONSTRUCTIONS: 09/11/20 HISTORY: Dyspnea, sharp substernal pain. COMPARISON: A 05/31/20 exam. Lungs are clear of any infiltrative process. There is some atelectatic changes and some reticular sca rring in the lung bases. No pulmonary nodules are identified. No significant mediastinal or hilar primitivo nopathy. A large hiatal hernia is again demonstrated. Thoracic aorta is normal in caliber. There is good pulmonary artery opacification obtained. There is no CT evidence for pulmonary embolus. The visualized liver parenchyma shows no focal findings. Gallbladder appears to have been removed. IMPRESSION: 1. No CT evidence for pulmonary embolus. 2. Large hiatal hernia. POS: OFF
[2020-09-11] MEDS ORDERED: Acetaminophen 325 MG TAB PO PRN (21:07)
--- NOTE | 2020-09-11 21:08 | PDOC.HHP ---
Hospitalist HPI - History of Present Illness Abdominal pain History of Present Illness: 60-year-old male patient With a past medical history of asthma, COPD, GERD and hepatitis C infection presenting with a days history of epigastric pain nausea and melena stools, headache. Of note patient was admitted about 4 months ago with similar presentations. Stress test was done with no compelling evidence of ischemia. Cardiology evaluated. She was on Eliquis for DVT which was continued She was in her usual state of health when a couple of days ago she started feeling the above symptoms. She admits to nausea and coffee-ground hematemesis. She also notes some emotional disturbance with her stepbrother and her mother being in rehab. Patient still quite anxious and intermittently confused the time of my assessment. She noticed having having intermittent retrosternal chest discomfort. At presentation blood pressure was 140/91, pulse 71, respiratory rate 16, saturation 98 on room air. Labs showed unremarkable CBC however she had a anemia of 10.4 which was normocytic with baseline 12.1 about 2 months ago. Hemoglobin however seems to be around her baseline from previous studies. Troponin was negative. Chest x- ray showed minimally increased interstitial lung markings and CT scan revealed no pulmonary embolism however a large hiatal hernia was noted. Hospitalist ROS - Review of Systems Constitutional: denies: fever, chills, sweats Cardiovascular: reports: chest pain, palpitations. denies: orthopnea, paroxysmal noc. dyspnea Genitourinary: denies: dysuria, frequency, incontinence, hematuria Neurological: denies: weakness, numbness, incoordination All other systems reviewed; all pertinent +/- noted in HPI/Subj - Medication Medications: Medications: Can review ambulatory list. Allergies: Mirtazapine ketorolac, codeine, tramadol Hospitalist History - Past Medical History Renal/: reports: UTI Other Medical History: DVT, GERD, anxiety - Past Surgical History Other Surgical History: Hysterectomy, cholecystectomy, hernia repair - Social History Drugs: reports: none - Exam General Appearance: awake alert General - other findings: Looks generally anxious Eye: PERRL, anicteric sclera Neck: supple, symmetric, no JVD Heart: RRR, no murmur, no gallops, no rubs Respiratory: CTAB, no rales, wheezes Gastrointestinal: soft, non-distended, normal bowel sounds, tender to palpation Extremities: no cyanosis, no clubbing, no edema Neurological: cranial nerve grossly intact, no focal deficits Musculoskeletal: normal tone, normal strength Psychiatric: normal affect, A&O x 3 Psychiatric - other findings: Looks anxious Hospitalist Results - Labs Result Diagrams: 09/11/20 18:07 09/11/20 18:07 Lab results: WBC 7.1 thou/uL (4.8-10.8) 09/11/20 18:07 Hgb 10.4 g/dL (12.0-16.0) L 09/11/20 18:07 Hct 30.7 % (36.0-47.0) L 09/11/20 18:07 MCV 97.3 fL (78.0-98.0) 09/11/20 18:07 Plt Count 239 thou/uL (130-400) 09/11/20 18:07 Neutrophils % 66.9 % (42.0-75.0) 09/11/20 18:07 Sodium 140 mmol/L (136-145) 09/11/20 18:07 Potassium 3.6 mmol/L (3.5-5.1) 09/11/20 18:07 Chloride 105 mmol/L (98-107) 09/11/20 18:07 Carbon Dioxide 25 mmol/L (22-29) 09/11/20 18:07 BUN 11 mg/dL (9.8-20.1) 09/11/20 18:07 Creatinine 0.83 mg/dL (0.6-1.1) 09/11/20 18:07 Glucose 78 mg/dL (70-105) 09/11/20 18:07 Calcium 8.7 mg/dL (7.8-10.44) 09/11/20 18:07 Total Bilirubin 0.2 mg/dL (0.2-1.2) 09/11/20 18:07 AST 10 U/L (5-34) 09/11/20 18:07 ALT Less than 7 U/L (8-55) L 09/11/20 18:07 Alkaline Phosphatase 43 U/L (40-110) 09/11/20 18:07 Creatine Kinase 118 U/L (29-168) 09/11/20 18:07 Troponin I Less than 0.010 ng/mL (< 0.028) 09/11/20 18:07 Serum Total Protein 6.3 g/dL (6.0-8.3) 09/11/20 18:07 Albumin 3.7 g/dL (3.5-5.0) 09/11/20 18:07 Hospitalist H&P A/P - Plan Plan: 60-year-old female patient history of asthma, COPD, GERD presenting with chest discomfort, hematemesis, mellitus with concern for possible upper GI bleed. Anemia secondary to possible upper GI bleed Restart home Protonix Sucralfate Iron studiesferritin was 18 and last admission she received iron N.p.o. overnight GI consult in a.m. Chest pain No concerning EKG or troponin changes. This is probably likely to GERD We will treat as above Monitor on telemetry. Consider cardio consult if worsens. Anxiety Continue patient on alprazolam. DVT Hold Eliquis for now Is unclear how long she has had is Evaluated and resume Eliquis in a.m. if indicated and no overt bleeding. Large umbilical hernia Noted on CT Consider surgical evaluation. DVT prophylaxisto resume Eliquis CODE STATUSfull
[2020-09-11] MEDS ORDERED: Ondansetron PF 4 MG/2 ML Vial IVP SCH (21:15)
[2020-09-11 21:52] LABS: Troponin I Less than 0.010 ng/mL (< 0.028)
[2020-09-11] MEDS: HYDROcodone/Acetaminophen 5/325 mg Tablet PO PRN (23:10)
[2020-09-11] MEDS ORDERED: Sodium Chloride 0.9% (PF) 10 ML VIAL FS PRN (23:15)
[2020-09-12 00:08] VITALS: BMI 26.4
[2020-09-12 04:40] LABS: #Eosinphils 0.2 thou/uL (0.0-0.7); #Lymphocytes 1.6 thou/uL (1.20-3.40); #Monocytes 0.6 thou/uL (0.11-0.59); %Basophils 0.7 % (0.0-1.0); %Eosinophils 2.7 % (0.0-10.0); %Lymphocytes 21.6 % (21.0-51.0); %Monocytes 7.6 % (0.0-10.0); %Neutrophils 67.5 % (42.0-75.0); Hemoglobin 10.8 g/dL (12.0-16.0); Mean Corpuscular Hemoglobin 32.9 pg (27.0-31.0); Mean Corpuscular Volume 99.7 fL (78.0-98.0); Mean Platelet Volume 8.3 fL (7.4-10.4); Platelet Count 206 thou/uL (130-400); RBC Distribution Width 14.3 % (11.5-14.5); White Blood Cell (WBC) Count 7.4 thou/uL (4.8-10.8)
[2020-09-12 05:04] LABS: Anion Gap 13 mmol/L (10-20); BUN (Urea Nitrogen) 10 mg/dL (9.8-20.1); Carbon Dioxide 24 mmol/L (22-29); Chloride 105 mmol/L (98-107); Iron 21 ug/dL (50-170); Iron Binding Capacity, Total 295 mcg/dL (265-497); Potassium 3.3 mmol/L (3.5-5.1); Sodium 139 mmol/L (136-145)
[2020-09-12 05:05] LABS: Calc. Creatinine Clearance 76 mL/min (70-130); Calcium 8.5 mg/dL (7.8-10.44); Glucose 81 mg/dL (70-105); Iron 21 ug/dL (50-170); Iron Binding Capacity, Total 296 mcg/dL (265-497)
[2020-09-12 05:09] LABS: Troponin I Less than 0.010 ng/mL (< 0.028)
[2020-09-12] MEDS: Levothyroxine Sodium 50 MCG TAB PO SCH (05:12)
[2020-09-12] MEDS: HYDROcodone/Acetaminophen 5/325 mg Tablet PO PRN ×3 (05:12→20:49)
[2020-09-12] MEDS: Ondansetron PF 4 MG/2 ML Vial IVP PRN ×3 (05:13→23:30)
[2020-09-12 05:23] LABS: Ferritin 10.68 ng/mL (10-291); Thyroid Stimulating Hormone 1.4118 uIU/mL (0.35-4.94)
[2020-09-12] MEDS: Nitroglycerin 0.4 MG TAB (25 Tab Bottle) SL PRN ×2 (05:47→05:52)
[2020-09-12 06:57] LABS: SARS-CoV-2 MS2 Positive; SARS-CoV-2 N Gene Negative; SARS-CoV-2 S Gene Negative; SARS-CoV-2 by NAA Not Detected (NotDetected); SARS-CoV-2 orf1ab Negative
[2020-09-12] MEDS: Mometasone 200 MCG/Formoterol 5 MCG 120 PUFF INHALER INH SCH ×2 (07:29→19:43)
[2020-09-12] MEDS ORDERED: Non-Formulary Item 1 EACH (Albuterol Sulfate [Albuterol Sulfate Neb] 0.63 MG/3 ML Vial.Ne NEB PRN (09:46)
[2020-09-12] MEDS ORDERED: Albuterol Sulfate 1.25 MG/3 ML NEB NEB PRN (09:55)
[2020-09-12] MEDS: Pantoprazole 40 MG VIAL IVP SCH ×2 (13:49→20:50)
[2020-09-12] MEDS: ALPRAZolam 0.5 MG TAB PO SCH ×3 (13:49→20:49)
[2020-09-12] MEDS: Midodrine HCl 5 MG TAB PO SCH ×2 (13:59→20:49)
[2020-09-12] MEDS: FLUoxetine HCl 20 MG CAP PO SCH (13:59)
[2020-09-12] MEDS: Amlodipine 5 MG TAB PO SCH (13:59)
[2020-09-12] MEDS: Ferrous Sulfate 325 MG TAB PO SCH (14:02)
[2020-09-12] MEDS ORDERED: Midodrine HCl 5 MG TAB PO SCH (15:00)
--- NOTE | 2020-09-12 15:11 | CON ---
DATE OF CONSULTATION: 09/12/2020 REQUESTING PHYSICIAN: Dr. Ballesteros. REASON FOR CONSULTATION: Abdominal pain, concern for melena. HISTORY OF PRESENT ILLNESS: Samantha Burciaga is a 60-year-old woman with a history of COPD and evidently treated hepatitis C in the past. She has a history of remote fundoplication for a hiatal hernia. She has some chronic iron deficiency anemia, it appears baseline in the 9 to 10 range. She takes Eliquis for history of DVT. She was admitted here last year in late April 2020 with concern for coffee-ground emesis and melena. She underwent EGD on 05/04/2020 with my colleague, Dr. Fraga. She was noted to have a tight lower esophageal sphincter with evidence of prior fundoplication, a 5 cm hiatal hernia under this area, a 9 mm ulcer in the gastric body just distal to the diaphragmatic pinch, some erosive gastritis and duodenitis. Biopsies all came back benign, negative for H pylori. It was recommended she stay on proton pump inhibitor therapy, which it appear she has. She has continued to take Eliquis. She reports a couple days ago she started having worsening pain in the epigastrium and chest as well as nausea. She had multiple episodes of emesis which she felt to have a coffee-ground appearance. She has also had some dark stools for the past couple of days. Upon presentation, hemoglobin was 10.4, which is essentially at her baseline and today is stable at 10.8. Eliquis was held on admission yesterday. Other labs were essentially unremarkable. BUN only 10, creatinine 0.91, and imaging showed no evidence of pulmonary embolus. She does have a large hiatal hernia. She does have some chronic iron deficiency as well. REVIEW OF SYSTEMS: Full review of systems including constitutional, head, eyes, ears, nose, throat, GI, , cardiovascular, respiratory, musculoskeletal, neurologic systems is negative except as noted in the HPI. PAST MEDICAL HISTORY: DVT, on Eliquis; COPD; GERD; hiatal hernia; hepatitis C, evidently treated successfully elsewhere; cholecystectomy; hysterectomy; small bowel obstruction with lysis of adhesions; hernia repair; fundoplication; gastric ulcer, visualized in April 2020. SOCIAL HISTORY: Rare alcohol use. No tobacco or drug use. FAMILY HISTORY: Negative for GI malignancy. ALLERGIES: MIRTAZAPINE, KETOROLAC, CODEINE, TRAMADOL. OUTPATIENT MEDICATIONS: 1. Incruse Ellipta. 2. Midodrine. 3. Linzess 72 mcg daily. 4. Levothyroxine. 5. Lactulose 10 mg daily p.r.n. 6. [place] p.r.n. 7. Gabapentin. 8. Folic acid. 9. Iron 325 mg daily. 10. Prozac. 11. Budesonide/formoterol inhaler. 12. Eliquis 5 mg b.i.d. 13. Norvasc. 14. Albuterol inhaler. 15. Alprazolam 0.5 mg t.i.d. PHYSICAL EXAMINATION: VITAL SIGNS: Temperature 97.8, pulse 98, blood pressure 123/90, 99% oxygen saturation on room air. GENERAL: A 60-year-old woman, lying in bed comfortably, in no distress. MENTAL: She is alert and oriented, pleasant, conversational, though she is quite tangential in her conversation. SKIN: No jaundice, no rashes were palpable. EYES: No scleral icterus. Extraocular movements intact. ENT: Mucous membranes moist. No oral lesions. LYMPH: No submandibular, supraclavicular lymphadenopathy. THYROID: Nontender to palpation. HEART: Regular rate and rhythm. LUNGS: Clear to auscultation bilaterally. ABDOMEN: Bowel sounds present. Soft and nontender to palpation except for the epigastric area, but there is no guarding, rebound, tenderness. EXTREMITIES: No peripheral edema. VESSELS: Radial pulses 2+ bilaterally. NEUROLOGIC: Cranial nerves 2 through 12 intact bilaterally. No focal deficits. LABORATORY STUDIES: Hemoglobin on admission is 10.4, currently 10.8 without transfusion. This is at her baseline. WBC 7.4, platelets 206. Sodium 139, potassium 3.3, BUN 10, creatinine 0.91, glucose 81, ferritin 10.8, iron is 21, TIBC 295, 7% iron saturation. TSH 1.41. LFTs normal. Troponin negative. COVID PCR negative. IMAGING STUDIES: Chest x-ray shows minimal increase in interstitial markings in left lung base. CT angiogram of the chest shows no lung infiltrates. No evidence of pulmonary embolus. Normal-appearing visualized portions of liver, absent gallbladder. There is a large hiatal hernia. ASSESSMENT AND PLAN: 1. Possible melena and coffee-ground emesis, over the past 2 days. 2. Iron deficiency anemia, chronic, hemoglobin is at baseline. 3. History of gastric ulcer, visualized in April 2020. 4. Hiatal hernia. Overall, I have low concern for any recent significant bleeding given that her hemoglobin is at baseline. She did have what she felt to be melenic stools and coffee-ground emesis the other day with a recent history of ulcer. It is certainly possible this is persistent and may have rebled a bit. We are going to plan for diagnostic EGD for further evaluation tomorrow. She is on IV PPI in the meantime here. Further recommendations following EGD tomorrow. Thank you for the consultation. Please call anytime with questions or concerns. Job ID: [id number]
--- NOTE | 2020-09-12 17:03 | PDOC.HOSPP ---
- Subjective Encounter Date: 09/12/20 Encounter Time: 10:00 Subjective: Patient up in bed no complaints. - Objective Vital Signs & Weight: Vital Signs (12 hours) Temp Pulse Resp BP BP Pulse Ox 09/12/20 15:21 87 20 100 09/12/20 13:59 94 133/80 09/12/20 11:37 97.8 F 98 16 123/90 99 09/12/20 10:55 85 18 95 09/12/20 07:29 83 20 95 09/12/20 07:20 97.8 F 80 16 135/71 84 L Weight Admit Weight 158 lb 8 oz Weight 158 lb 8 oz I&O: 09/11/20 09/12/20 09/13/20 06:59 06:59 06:59 Intake Total 240 Balance 240 Result Diagrams: 09/12/20 04:25 09/12/20 04:25 Hospitalist ROS - Review of Systems Cardiovascular: denies: chest pain, palpitations, orthopnea, paroxysmal noc. dyspnea, edema, light headedness, other Gastrointestinal: denies: nausea, vomiting, abdominal pain, diarrhea, constipation, melena, hematochezia, other Genitourinary: denies: dysuria, frequency, incontinence, hematuria, retention, other - Medication Medications: Active Medications Generic Name Dose Route Start Last Admin Trade Name Freq PRN Reason Stop Dose Admin Hydrocodone Bitart/Acetaminophen 1 tab 09/11/20 22:49 09/12/20 14:02 Hydrocodone/Acetaminophen 5/325 Mg Tablet PO 1 tab Q6H PRN Administration Moderate Pain (4-6) Albuterol/Ipratropium 3 ml 09/11/20 22:30 09/12/20 15:21 Ipratropium/Albuterol Sulfate 3 Ml Neb NEB 3 ml [id number] ALEJANDRINA Administration Alprazolam 0.5 mg 09/12/20 09:00 09/12/20 13:59 Alprazolam 0.5 Mg Tab PO 0.5 mg TID ALEJANDRINA Administration Amlodipine Besylate 2.5 mg 09/12/20 09:00 09/12/20 13:59 Amlodipine 5 Mg Tab PO 2.5 mg DAILY ALEJANDRINA Administration Ferrous Sulfate 325 mg 09/12/20 08:00 09/12/20 14:02 Ferrous Sulfate 325 Mg Tab PO Not Given QAM- ALEJANDRINA Fluoxetine HCl 40 mg 09/12/20 09:00 09/12/20 13:59 Fluoxetine Hcl 20 Mg Cap PO 40 mg DAILY ALEJANDRINA Administration Levothyroxine Sodium 50 mcg 09/12/20 06:00 09/12/20 05:12 Levothyroxine Sodium 50 Mcg Tab PO 50 mcg 0600 ALEJANDRINA Administration Midodrine 5 mg 09/12/20 15:00 09/12/20 13:59 Midodrine Hcl 5 Mg Tab PO 5 mg TID ALEJANDRINA Administration Mometasone Furoate/Formoterol Fumar 2 puff 09/12/20 06:30 09/12/20 07:29 Mometasone 200 Mcg/Formoterol 5 Mcg 120 Puff Inhaler INH 2 puff BID-RT ALEJANDRINA Administration Nitroglycerin 0.4 mg 09/12/20 05:31 09/12/20 05:52 Nitroglycerin 0.4 Mg Tab (25 Tab Bottle) SL 1 tab Q5MIN PRN Administration Chest Pain Ondansetron HCl 4 mg 09/11/20 21:07 09/12/20 11:46 Ondansetron Pf 4 Mg/2 Ml Vial IVP 4 mg Q6H PRN Administration Nausea/Vomiting Pantoprazole Sodium 40 mg 09/12/20 09:00 09/12/20 13:49 Pantoprazole 40 Mg Vial IVP Not Given Q12HR ALEJANDRINA - Exam Neck: negative: supple, symmetric, no JVD, no thyromegaly, no lymphadenopathy, no carotid bruit, JVD Heart: negative: RRR, no murmur, no gallops, no rubs, normal peripheral pulses, irregular, diminshed peripheral pulses, murmur present, II/IV, III/IV Respiratory: negative: CTAB, no wheezes, no rales, no ronchi, normal chest exp ansion, no tachypnea, normal percussion, rales, rhonchi, tachypneic, wheezes Hosp A/P (1) Anemia due to blood loss, acute Code(s): D62 - ACUTE POSTHEMORRHAGIC ANEMIA Status: Acute (2) Coffee ground emesis Code(s): K92.0 - HEMATEMESIS Status: Acute (3) PUD (peptic ulcer disease) Code(s): K27.9 - PEPTIC ULC, SITE UNSP, UNSP AC OR CHR, W/O HEMOR OR PERF Status: Acute (4) Hepatitis C Code(s): B19.20 - UNSPECIFIED VIRAL HEPATITIS C WITHOUT HEPATIC COMA Status: Chronic (5) Fe deficiency anemia Code(s): D50.9 - IRON DEFICIENCY ANEMIA, UNSPECIFIED Status: Acute - Plan Patient is a 60-year-old female who comes into the hospital with hematemesis. Patient has had an EGD colonoscopy in May and was noted to have a 9 mm ulcer in the mid body of the stomach. Patient also is status post fundoplication with tight lower esophageal sphincter. She also has a hiatal hernia with a large diaphragmatic opening erosive gastritis also was noted. The Ms. duodenitis also was noted in the first part of the duodenum Patient's H&H is stable. Per GIs note patient will undergo EGD colonoscopy. Patient currently is on PPI. We will continue patient's oral iron.
[2020-09-12] MEDS ORDERED: Gabapentin 300 MG CAP PO SCH (21:00)
[2020-09-13] MEDS: HYDROcodone/Acetaminophen 5/325 mg Tablet PO PRN ×3 (03:31→18:14)
[2020-09-13] MEDS: Levothyroxine Sodium 50 MCG TAB PO SCH (05:05)
--- NOTE | 2020-09-13 08:56 | OP ---
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 PROCEDURE PERFORMED: Esophagogastroduodenoscopy, diagnostic. INDICATIONS: 1. Coffee-ground emesis. 2. Melena. 3. Chronic iron deficiency anemia. 4. Nausea and vomiting. MEDICATIONS: See Anesthesia record. FINDINGS: After discussion of the risks, benefits, and alternatives of the procedure, informed consent was obtained and witnessed. Pre-endoscopic cardiopulmonary examination was satisfactory. Time-out was performed before sedation was achieved. Sedation was achieved with Anesthesia assistance in the endoscopy unit. A Pentax adult upper endoscope was placed into the oropharynx and passed through the cricopharyngeus under direct visualization. The esophageal mucosa appeared normal throughout. The lower esophageal sphincter was fairly tight, which is consistent with her prior history of fundoplication. The GE junction was about 33 cm from the incisors. Beyond this, the endoscope was advanced into the stomach into a large hiatal hernia. This measures about 7 cm in length with the diaphragmatic pinch at 40 cm from the incisors. There are multiple shallow Nahum erosions in the area of the diaphragmatic pinch, though the area was wide with a large diaphragmatic opening. In the gastric antrum, there was diffuse friability, but no other erosive disease. The endoscope was advanced into the first portion of the duodenum, where there was an erosion and erythema. The second portion of the duodenum appears normal. There was no evidence of any old blood or active bleeding. The upper endoscope was completely withdrawn and the patient allowed to recover. The patient tolerated the procedure well. There were no immediate postprocedure complications. IMPRESSION: 1. Evidence of slipped fundoplication with tight lower esophageal sphincter at 33 cm from the incisors. 2. A 7-cm large hiatal hernia with large diaphragmatic opening at 40 cm from the incisors. 3. Multiple shallow Nahum erosions. 4. Antral gastritis. 5. Erosive duodenitis in the bulb. 6. No bleeding visualized. RECOMMENDATIONS: 1. Advance diet as tolerated. 2. Increase proton pump inhibitor to twice daily dosing orally on discharge, and continue this until GI Clinic followup. 3. Avoid tobacco and alcohol. GI will sign off. The patient can follow up in the GI Clinic in the next few weeks. Please call back if needed. Job ID: [id number]
[2020-09-13] MEDS ORDERED: Non-Formulary Item 1 EACH (Linaclotide [Linzess] 72 MCG Capsule) PO SCH (09:00)
[2020-09-13] MEDS ORDERED: Folic Acid 1 MG TAB PO SCH ×2 (09:00)
[2020-09-13] MEDS ORDERED: Linaclotide [Linzess] 72 MCG PO SCH (09:00)
[2020-09-13] MEDS ORDERED: Non-Formulary Item 1 EACH (Umeclidinium Bromide [Incruse Ellipta] 62.5 MCG Blst.W.Dev) IH SCH (09:00)
[2020-09-13] MEDS: Mometasone 200 MCG/Formoterol 5 MCG 120 PUFF INHALER INH SCH (09:03)
[2020-09-13] MEDS: Amlodipine 5 MG TAB PO SCH (11:36)
[2020-09-13] MEDS: Ferrous Sulfate 325 MG TAB PO SCH (11:36)
[2020-09-13] MEDS: ALPRAZolam 0.5 MG TAB PO SCH ×2 (11:36→15:28)
[2020-09-13] MEDS: Midodrine HCl 5 MG TAB PO SCH ×2 (11:36→15:28)
[2020-09-13] MEDS: FLUoxetine HCl 20 MG CAP PO SCH (11:36)
[2020-09-13] MEDS: Pantoprazole 40 MG VIAL IVP SCH (11:37)
[2020-09-13] MEDS ORDERED: PROPOFOL 200 MG/20 ML VIAL ONE (12:04)
[2020-09-13] MEDS ORDERED: Lidocaine 1% PF 5 ML VIAL ONE (12:04)
[2020-09-13] MEDS ORDERED: Morphine 4 MG/ML VIAL SLOW IVP SCH (12:30)
[2020-09-13] MEDS: Ondansetron PF 4 MG/2 ML Vial IVP PRN (15:28)
[2020-09-13 15:35] VITALS: BP 168/90; TEMP 98.1
== END 2020-09-13 18:40 | disposition home or self-care (01) ==
LOC: ERS 17:13 → 2NO 20:46
PROVIDERS: ADMIT Student in an Organized Health Care Education/Training Program; ATTEND Student in an Organized Health Care Education/Training Program
PROC: 0DJ08ZZ Inspection of Upper Intestinal Tract, Via Natural or Artificial Opening Endoscopic (ICD-10-PCS; principal; 2020-09-11)
DX: K29.91 Gastroduodenitis, unspecified, with bleeding (principal); D62 Acute posthemorrhagic anemia; D50.9 Iron deficiency anemia, unspecified; K44.9 Diaphragmatic hernia without obstruction or gangrene; K21.9 Gastro-esophageal reflux disease without esophagitis; F17.220 Nicotine dependence, chewing tobacco, uncomplicated; J44.9 Chronic obstructive pulmonary disease, unspecified; F41.9 Anxiety disorder, unspecified; F32.9 Major depressive disorder, single episode, unspecified; F43.10 Post-traumatic stress disorder, unspecified; K42.9 Umbilical hernia without obstruction or gangrene; Z79.01 Long term (current) use of anticoagulants; Z79.899 Other long term (current) drug therapy; Z88.5 Allergy status to narcotic agent; Z88.6 Allergy status to analgesic agent; Z88.8 Allergy status to other drugs, medicaments and biological substances; Z91.5 Personal history of self-harm; Z86.718 Personal history of other venous thrombosis and embolism; Z20.822 Contact with and (suspected) exposure to COVID-19
CPT/HCPCS: 43235; 71045; 71275; 80048; 80053; 82550; 82728; 83540; 83550; 84443; 84484 ×3; 85025 ×2; 86850; 86900; 86901; 90732; 93005; 94640 ×5; G0009; U0003; 36415; 82270; 87635; 90471; 96374; 96375; 96376; C9113; G0378; J2270; J2405; J2704; J7620; Q9967

== ENCOUNTER 2020-09-24 12:30 | Emergency (ER) | payer MEDICARE, MEDICAID ==
[2020-09-24 13:08] LABS: #Basophils 0.1 thou/uL (0.0-0.2); #Eosinphils 0.2 thou/uL (0.0-0.7); #Lymphocytes 1.7 thou/uL (1.20-3.40); #Monocytes 0.4 thou/uL (0.11-0.59); #Neutrophils 4.4 thou/uL (1.40-6.50); %Basophils 0.9 % (0.0-1.0); %Eosinophils 2.3 % (0.0-10.0); %Lymphocytes 24.7 % (21.0-51.0); %Monocytes 6.1 % (0.0-10.0); Mean Corpuscular HGB CONC 33.1 g/dL (32.0-36.0); Mean Corpuscular Volume 96.8 fL (78.0-98.0); Mean Platelet Volume 7.6 fL (7.4-10.4); Platelet Count 298 thou/uL (130-400); RBC Distribution Width 13.6 % (11.5-14.5); Red Blood Cell (RBC) Count 3.44 mill/uL (4.20-5.40); White Blood Cell (WBC) Count 6.7 thou/uL (4.8-10.8)
[2020-09-24] MEDS ORDERED: HYDROcodone/Acetaminophen 5/325 mg Tablet ONE (13:37)
[2020-09-24 13:43] LABS: ALT (SGPT) 8 U/L (8-55); AST (SGOT) 13 U/L (5-34); Albumin 3.9 g/dL (3.5-5.0); Alkaline Phosphatase 43 U/L (40-110); Anion Gap 14 mmol/L (10-20); BUN (Urea Nitrogen) 13 mg/dL (9.8-20.1); Bilirubin, Total 0.2 mg/dL (0.2-1.2); Calc. Creatinine Clearance 0 mL/min (70-130); Carbon Dioxide 26 mmol/L (22-29); Chloride 102 mmol/L (98-107); Globulin 3.1 g/dL (2.4-3.5); Glucose 85 mg/dL (70-105); Sodium 138 mmol/L (136-145)
[2020-09-24 14:07] LABS: Bacteria/HPF 4+ HPF (None Seen); Bilirubin Negative (Negative); Blood, Urine Negative (Negative); Clarity Turbid (Clear); Glucose, Urine (Dipstick) Normal (Negative); Ketone, Urine Negative (Negative); Leukocyte 250 Leu/uL (Negative); Nitrite 2+ (Negative); Protein, Urine (Dipstick) Negative (Neg-Trace); RBC/HPF None Seen HPF (0-3); Specific Gravity, Urine 1.007 (1.002-1.036); Squamous Epithelial 0-3 HPF (0-3); Urobilinogen Normal mg/dL (Less than 2); pH, Urine 6.5 (5.0-9.0)
--- NOTE | 2020-09-24 14:20 | CT ---
CT OF THE BRAIN WITHOUT CONTRAST: COMPARISON: 05/31/2020. HISTORY: Dizziness and fall with head trauma and rib pain. TECHNIQUE: Multiple contiguous axial images were obtained in a CT of the brain without contrast. FINDINGS: The brain is normal in morphology and attenuation without focal lesions or confluent areas of infarct ion. There is no evidence of hydrocephalus, intraventricular hemorrhage, or extraaxial fluid collect ion. The calvarium and overlying soft tissues are unremarkable. The visualized paranasal sinuses and mast oid air cells are well aerated. IMPRESSION: No evidence of acute intracranial abnormality. POS: AH
--- NOTE | 2020-09-24 14:58 | RAD ---
PORTABLE CHEST: 09/24/20 HISTORY: Dizziness. Fall with injury. Left rib pain. COMPARISON: 09/11/20 exam. Lungs remain clear. No infiltrate. Heart and mediastinum unremarkable. Old right sided rib deformitie s. No acute rib fracture identified on this portable chest. IMPRESSION: No acute process. POS: AGW
== END 2020-09-24 15:59 | disposition home or self-care (01) ==
LOC: ERS 12:30
DX: S20.212A Contusion of left front wall of thorax, initial encounter (principal); N39.0 Urinary tract infection, site not specified; J44.9 Chronic obstructive pulmonary disease, unspecified; I10 Essential (primary) hypertension; F17.210 Nicotine dependence, cigarettes, uncomplicated; Z79.899 Other long term (current) drug therapy; W01.0XXA Fall on same level from slipping, tripping and stumbling without subsequent striking against object, initial encounter
CPT/HCPCS: 70450; 71045; 80053; 81003; 81015; 84484; 85025

== ENCOUNTER 2020-10-24 13:51 | Observation (INO) | payer MEDICARE, MEDICAID ==
[~2020-10-24 13:51] MED LIST changes: -Iopamidol 370 76% 100 ML VIAL ONE; +Iopamidol-370 76% 500 ML 1 ML ONE
--- NOTE | 2020-10-24 14:35 | RAD ---
XR Shoulder Rt 3 View STANDARD History: Fall Comparison: Chest radiograph September 24, 2020 Findings: Multiple right rib fractures. There is a fracture through the mid acromion. Normal acromioc lavicular alignment. Impression: Nondisplaced mid acromial fracture.
[2020-10-24 14:57] LABS: #Eosinphils 0.1 thou/uL (0.0-0.7); #Lymphocytes 1.6 thou/uL (1.20-3.40); #Monocytes 0.4 thou/uL (0.11-0.59); #Neutrophils 3.3 thou/uL (1.40-6.50); %Basophils 0.7 % (0.0-1.0); %Eosinophils 2.6 % (0.0-10.0); %Lymphocytes 29.4 % (21.0-51.0); %Neutrophils 60.3 % (42.0-75.0); Hemoglobin 12.4 g/dL (12.0-16.0); Mean Corpuscular Hemoglobin 32.8 pg (27.0-31.0); Mean Corpuscular Volume 96.5 fL (78.0-98.0); Mean Platelet Volume 7.9 fL (7.4-10.4); Platelet Count 264 thou/uL (130-400); RBC Distribution Width 14.8 % (11.5-14.5); Red Blood Cell (RBC) Count 3.77 mill/uL (4.20-5.40); White Blood Cell (WBC) Count 5.5 thou/uL (4.8-10.8)
[2020-10-24 15:05] LABS: PTT 29.6 sec (22.9-36.1); Prothrombin Time 13.3 sec (12.0-14.7)
[2020-10-24 15:20] LABS: ALT (SGPT) 18 U/L (8-55); AST (SGOT) 28 U/L (5-34); Albumin 4.4 g/dL (3.5-5.0); Alkaline Phosphatase 52 U/L (40-110); Anion Gap 18 mmol/L (10-20); BUN (Urea Nitrogen) 15 mg/dL (9.8-20.1); Bilirubin, Total 0.2 mg/dL (0.2-1.2); CK (CPK) 232 U/L (29-168); Calc. Creatinine Clearance 0 mL/min (70-130); Calcium 9.3 mg/dL (7.8-10.44); Carbon Dioxide 22 mmol/L (22-29); Chloride 105 mmol/L (98-107); Globulin 3.4 g/dL (2.4-3.5); Glucose 85 mg/dL (70-105); Lipase 41 U/L (8-78); Potassium 4.3 mmol/L (3.5-5.1); Protein, Total 7.8 g/dL (6.0-8.3); Sodium 141 mmol/L (136-145)
--- NOTE | 2020-10-24 16:47 | CT ---
Head CT without contrast 10/24/2020: COMPARISON: 09/24/2020 HISTORY: Fall on blood thinners TECHNIQUE: Axial CT imaging at 5 mm intervals from vertex through skull base without contrast FINDINGS: The imaged paranasal sinuses and mastoid air cells appear well-aerated. There is no intracranial hemorrhage, midline shift, or mass effect. No ventricular enlargement. No displaced calvarial fracture. IMPRESSION: No intracranial hemorrhage or displaced calvarial fracture.
--- NOTE | 2020-10-24 16:51 | CT ---
CT of thecervical spine: 10/24/2020 COMPARISON:05/31/2020 HISTORY:Fall, trauma, pain TECHNIQUE: Serial axial CT imaging at1.25 mm intervals from theskull base through lung apices without contrast. Coronal and sagittal reformatted imaging obtained. Findings:Partially imaged paranasal sinuses and mastoid air cells appear well aerated. The C1 ring is intact. The occipital condyles, the dens, the C1-2 articulation, the atlantoaxial interspace, the craniocervi mc junction, and the cervicothoracic junction demonstrates no acute findings. There is degenerative change at the atlantoaxial interspace. No prevertebral soft tissue swelling. No cervical spine anterolisthesis or retrolisthesis. There is disc space narrowing with posterior osteophyte at C5-6 with associated central canal stenosi s. The partially imaged lung apices appear grossly unremarkable. No displaced fracture or evidence of dislocation is seen involving the cervical spine. Impression:No acute osseous abnormality.
--- NOTE | 2020-10-24 16:59 | CT ---
CT of the chest, abdomen, pelvis, thoracic spine, lumbar spine 10/24/2020 HISTORY: Fall, trauma, pain TECHNIQUE: Axial CT imaging at 5 mm intervals from the thoracic inlet through the pubic symphysis wit h IV contrast. Coronal and sagittal reformatted imaging of the chest, abdomen, pelvis, thoracic spine, and lumbar spine provided. FINDINGS: No lymphadenopathy noted in the chest. Coronary arterial calcification present. Vascular structures of the chest appear patent. There is a prominent sliding-type hiatal hernia with the gastric fundus and a portion of the gastric body herniating into the lower chest. There is no pneumothorax evident on either side. No acute pulmonary parenchymal abnormality noted. There are 2 peripheral right upper lobe nodules measuring up to 4 mm unchanged when compared to a CT angiogram of the chest performed 03/24/2020 The extraspinal osseous structures of the chest demonstrate degenerative changes of bilateral acromio clavicular joints. No free intraperitoneal air or fluid is seen. Cholecystectomy clips are noted. The liver, spleen, pancreas, adrenal glands, and kidneys appear unremarkable. Limited assessment of the bowel without oral contrast media demonstrates sigmoid diverticulosis witho ut evidence for diverticulitis. There is scattered atherosclerotic calcification of the abdominal aorta. No abdominal or pelvic lymph adenopathy. The extraspinal osseous structures of the pelvis demonstrate no acute findings. CT imaging of the thoracic spine demonstrates no evidence for displaced fracture or dislocation. Thor acic vertebral body height and alignment appears within normal limits. Dedicated CT imaging of the lumbar spine demonstrates multilevel lower lumbar spine facet hypertrophy . No acute fracture or evidence of dislocation is seen involving the lumbar spine. IMPRESSION: There are incidentals findings as detailed above. No acute posttraumatic abnormality note d within the chest, abdomen, pelvis, thoracic spine, or lumbar spine.
[2020-10-24] MEDS ORDERED: Fentanyl 100 MCG/2 ML VIAL ONE ×2 (17:49→18:11)
--- NOTE | 2020-10-24 20:02 | PDOC.FPRHP ---
- History of Present Illness Chief Complaint: Fall History of Present Illness: 60 year old female with history of idiopathic hypotension presented to the emergency department today for recurrent falls. Patient stated that she fell a total of three times today attributing the falls to the icy conditions. She say her last fall she fell backwards and struck the back of her head and believes she lost consciousness for a short time. Due to the pain from her falls she took a couple of shots of fireball. Afterwards she felt dazed and confused for a while so she came to the emergency department to be evaluated. Upon arrival to patients blood pressures were soft, as low as 92 / 77. These were responsive to fluids and returned to normal after 1L.Patient states that she missed her afternoon dose of midodrine due to the incidents. She noted posterior head pain with an associated headache, as well as right hip and right knee pain. She had imaging of all those areas which were all normal. Patient was previously on Eliquis for pulmonary embolisms but has been taken off of that and is not currently anticoagulated. Currently her only complaint is a continued mild headache. She denies any focal neurologic deficits. she denies any history of head trauma. ED Course: 50 mcg Fentanyl x2, 1L NS bolus. CT brain, chest, abdomen, pelvis, Xray shoulder. - Allergies/Adverse Reactions Allergies Allergy/AdvReac Type Severity Reaction Status Date / Time codeine Allergy Unknown Rash, Hives Verified 10/25/20 01:35 ketorolac [From Toradol] Allergy Unknown Swollen Verified 10/25/20 01:35 Lips & Tongue mirtazapine Allergy Unknown Swollen Verified 10/25/20 01:35 Lips & Tongue oxycodone Allergy Unknown Verified 10/25/20 01:35 tramadol Allergy Unknown Swollen Verified 10/25/20 01:35 Lips & Tongue zolpidem Allergy Unknown Verified 10/25/20 01:35 - Home Medications Medication Instructions Recorded Confirmed Type ALPRAZolam [Alprazolam] 0.5 mg PO HS 05/03/20 10/24/20 History Albuterol Sulfate [Albuterol 0.63 mg NEB Q6HR PRN 05/03/20 10/24/20 History Sulfate Neb] Budesonide/Formoterol Fumarate 2 puff IH BID 05/03/20 10/24/20 History [Budesonide-Formoterol 160-4.5] Levothyroxine Sodium 0.5 tab PO DAILY 05/03/20 10/24/20 History Umeclidinium [place] [Incruse 1 inh IH DAILY 05/03/20 10/24/20 History Ellipta] FLUoxetine HCl [Prozac] 40 mg PO DAILY 06/08/20 10/24/20 History Ferrous Sulfate [Feosol] 325 mg PO QAM-WM tab 06/10/20 10/24/20 Rx Gabapentin 600 mg PO HS 09/11/20 10/24/20 History Linaclotide [Linzess] 72 mcg PO DAILY 09/11/20 10/24/20 History Midodrine HCl 5 mg PO TID 09/11/20 10/24/20 History Pantoprazole [Protonix] 40 mg PO BID #60 tab 09/13/20 10/24/20 Rx Acetaminophen [Tylenol Regular 650 mg PO Q4H PRN tab 10/25/20 Rx Strength] Cyclobenzaprine [Flexeril] 10 mg PO BID 10 Days #20 tab 10/25/20 Rx Ondansetron [Zofran ODT] 4 mg PO Q6H PRN 10 Days #40 tab 10/25/20 Rx - History PMHx: PTSD, COPD, Idiopathic hypotension PSHx: Robert fundoplication with revision x2, knee FHx: Non contributory Social: Dips chew, denies smoking, occasional alcohol, denies drugs. - Review of Systems General: denies: fever/chills, weight/appetite/sleep changes Eyes: denies: vision changes, other ENT: denies: nasal congestion, rhinorrhea Respiratory: denies: cough, shortness of breath Cardiovascular: denies: edema Gastrointestinal: denies: nausea, vomiting Genitourinary: denies: incontinence, dysuria Skin: denies: rashes, lesions Musculoskeletal: reports: pain, tenderness, swelling (right knee) Neurological: reports: syncope, other (headache). denies: numbness, weakness Psychological: reports: anxiety, depression - Vital signs BP: 110/67, MAP: 81, Pulse: 78, Resp: 16 (Non-Labored), Pain: 7, O2 sat: 97 on (Room Air), Wt: 84kg - Physical Exam Constitutional: NAD, awake, alert and oriented, other (not well kept) HEENT: PERRLA, EOMI, MMM Neck: supple, FROM, trachea midline Heart: RRR, normal S1/S2 Lungs: no respiratory distress, good air movement -Lungs: Slight scattered expiratory wheezes Abdomen: soft, non-tender Musculoskeletal: normal structure, normal tone, ROM grossly normal -Musculoskeletal: Complains of right knee swelling but none noted on exam, no deformity or apparent injury, full ROM without pain Neurological: no focal deficit, CN II-XII intact Skin: no rash/lesions, good turgor Heme/Lymphatic: no unusual bruising or bleeding, no purpura, no petechia Psychiatric: intact recent and remote memory -Psychiatric: Poor judgement and insight FMR H&P: Results - Labs Result Diagrams: 10/24/20 14:45 10/24/20 14:45 Lab results: WBC 5.5 thou/uL (4.8-10.8) 10/24/20 14:45 Hgb 12.4 g/dL (12.0-16.0) 10/24/20 14:45 Hct 36.4 % (36.0-47.0) 10/24/20 14:45 MCV 96.5 fL (78.0-98.0) 10/24/20 14:45 Plt Count 264 thou/uL (130-400) 10/24/20 14:45 Neutrophils % 60.3 % (42.0-75.0) 10/24/20 14:45 Sodium 141 mmol/L (136-145) 10/24/20 14:45 Potassium 4.3 mmol/L (3.5-5.1) 10/24/20 14:45 Chloride 105 mmol/L (98-107) 10/24/20 14:45 Carbon Dioxide 22 mmol/L (22-29) 10/24/20 14:45 BUN 15 mg/dL (9.8-20.1) 10/24/20 14:45 Creatinine 0.88 mg/dL (0.6-1.1) 10/24/20 14:45 Glucose 85 mg/dL (70-105) 10/24/20 14:45 Lactic Acid 1.5 mmol/L (0.5-2.2) 10/24/20 14:45 Calcium 9.3 mg/dL (7.8-10.44) 10/24/20 14:45 Total Bilirubin 0.2 mg/dL (0.2-1.2) 10/24/20 14:45 AST 28 U/L (5-34) 10/24/20 14:45 ALT 18 U/L (8-55) 10/24/20 14:45 Alkaline Phosphatase 52 U/L (40-110) 10/24/20 14:45 Creatine Kinase 232 U/L (29-168) H 10/24/20 14:45 B-Natriuretic Peptide 42.7 pg/mL (0-100) 10/24/20 14:45 Serum Total Protein 7.8 g/dL (6.0-8.3) 10/24/20 14:45 Albumin 4.4 g/dL (3.5-5.0) 10/24/20 14:45 Lipase 41 U/L (8-78) 10/24/20 14:45 - Radiology Interpretation Other Status: report reviewed by me (No acute posttraumatic abnormality noted within the chest, abdomen, pelvis, thoracic spine, or lumbar spine.) Additional comment: CT chest, abd, pelvis CT scan - head Status: report reviewed by me (No intracranial hemorrhage or displaced calvarial fracture.) Chest x-ray Additional comment: Right shoulder xray: Nondisplaced mid acromial fracture. FMR H&P: A/P - Problem List (1) Acromial fracture Current Visit: Yes Status: Acute Code(s): S42.123A - DISP FX OF ACROMIAL PROCESS, UNSP SHOULDER, INIT FOR CLOS FX (2) Fall Current Visit: Yes Status: Acute Code(s): W19.XXXA - UNSPECIFIED FALL, INITI AL ENCOUNTER (3) Idiopathic chronic hypotension Current Visit: Yes Status: Acute Code(s): I95.0 - IDIOPATHIC HYPOTENSION (4) Concussion Current Visit: Yes Status: Acute Code(s): S06.0X9A - CONCUSSION W LOSS OF CONSCIOUSNESS OF UNSP DURATION, INIT FMR H&P: Upper Level - Plan Fall - Mechanical: Right non displaced acromial fracture and concussion - CT head, neck, chest, abdomen, pelvis: no acute findings - Right shoulder Xray: non displaced acromial fracture - Sling, ortho follow up outpt - Tylenol for pain - PT/OT consult - UDS and SDS to screen for substance abuse contributing - Cerebral rest and post concussive measures Idiopathic Hypotension - Borderline BP on arrival, responded to fluids - Missed 1 dose of midodrine - Resume home meds and monitor on tele Chronic Medical Conditions PTSD - prozac, alprazolam COPD - Incur and symbicort Hypothyroid - levothyroxine IVF: SL VTE: SCD Diet: Regular Code: Full PCP: OOT Dispo: Admit to tele for BP monitoring. PT/OT eval for injuries and functional status. Symptomatic management of concussion. Date/Time: 10/24/202001 Rito Baker DO - PGY2 Addendum - Attending - Attending Attestation Date/Time: 10/24/202010 I personally evaluated the patient and discussed the management with Dr. Baker. I agree with the History, Examination, Assessment and Plan documented above with any addition or exceptions noted below. Will discuss fracture with ortho tomorrow. Restart midodrine. Hold norvasc. Pain control.
[2020-10-24] MEDS ORDERED: Acetaminophen 325 MG TAB PO PRN (20:19)
[2020-10-24] MEDS ORDERED: Acetaminophen 650 MG Suppository PR PRN (20:19)
[2020-10-24] MEDS ORDERED: Albuterol Sulfate 1.25 MG/3 ML NEB NEB PRN (20:43)
[2020-10-24] MEDS ORDERED: ALPRAZolam 0.25 MG TAB ONE (20:58)
[2020-10-24] MEDS ORDERED: Gabapentin 300 MG CAP PO SCH (21:00)
[2020-10-24] MEDS ORDERED: ALPRAZolam 0.5 MG TAB PO SCH (21:00)
[2020-10-24] MEDS: Midodrine HCl 5 MG TAB PO SCH (21:28)
[2020-10-24 22:13] LABS: Acetaminophen Less than 6.0 mcg/mL (10.0-30.0); Alcohol Less than 10 mg/dL (Less than 10); Salicylate Less than 8.0 mg/dL (15.0-30.0)
[2020-10-24] MEDS ORDERED: HYDROcodone/Acetaminophen 5/325 mg Tablet PO PRN (22:34)
[2020-10-24] MEDS ORDERED: HYDROcodone/Acetaminophen 5/325 mg Tablet ONE (23:03)
[2020-10-25] MEDS ORDERED: Ondansetron PF 4 MG/2 ML Vial IVP PRN (01:27)
[2020-10-25] MEDS ORDERED: Ondansetron ODT 4 MG TAB PO PRN (01:27)
[2020-10-25] MEDS ORDERED: HYDROcodone/Acetaminophen 5/325 mg Tablet PO PRN (01:27)
[2020-10-25 01:31] VITALS: BMI 27.6
[2020-10-25 02:13] LABS: SARS-CoV-2 PCR by NAA Not Detected (NotDetected)
[2020-10-25] MEDS: Ibuprofen 800 MG TAB PO SCH ×2 (05:21→15:37)
[2020-10-25] MEDS ORDERED: Levothyroxine Sodium 50 MCG TAB PO SCH (06:00)
[2020-10-25 06:02] LABS: Medtox Reader # READER 4; THC/Cannabinoid Screen Detected (NotDetected)
[2020-10-25 06:03] LABS: Amphetamine Not Detected (NotDetected); Barbiturates Screen Not Detected (NotDetected); Benzodiazepine Screen Detected (NotDetected); Cocaine Metabolite Screen Not Detected (NotDetected); Medtox Control Line Valid? VALID (VALID); Methadone Not Detected (NotDetected); Methamphetamine Not Detected (NotDetected); Opiate Screen Not Detected (NotDetected); Oxycodone Screen Not Detected (NotDetected); Phencyclidine (PCP) Not Detected (NotDetected); Tricyclic Screen Not Detected (NotDetected)
--- NOTE | 2020-10-25 06:27 | PDOC.FM ---
- Subjective Subjective: Pt states she feels very sore this morning. She says she hurts all over. She said she tried to eat last night, but she felt nausea and threw up once. - Objective MAR Reviewed: Yes Vital Signs & Weight: Vital Signs (12 hours) Temp Pulse Resp BP BP BP Pulse Ox 10/25/20 04:00 97.4 F L 58 L 16 119/63 95 10/25/20 00:58 97.9 F 65 16 116/81 126/72 114/68 99 10/25/20 00:44 67 16 20 L Weight Weight 75.478 kg I&O: 10/23/20 10/24/20 10/25/20 06:59 06:59 06:59 Intake Total 600 Output Total 800 Balance -200 Result Diagrams: 10/24/20 14:45 10/24/20 14:45 EKG Reviewed by me: Yes (SR in the 60-80s) Phys Exam - Physical Examination Constitutional: NAD HEENT: moist MMs, sclera anicteric Neck: supple wheezes bilateral lower lobes Cardiovascular: RRR, no significant murmur Gastrointestinal: soft, non-tender Musculoskeletal: pulses present Neurological: moves all 4 limbs Psychiatric: normal affect Skin: no rash Dx/Plan (1) Acromial fracture Code(s): S42.123A - DISP FX OF ACROMIAL PROCESS, UNSP SHOULDER, INIT FOR CLOS FX Status: Acute (2) Fall Code(s): W19.XXXA - UNSPECIFIED FALL, INITIAL ENCOUNTER Status: Acute (3) Idiopathic chronic hypotension Code(s): I95.0 - IDIOPATHIC HYPOTENSION Status: Acute (4) History of COPD Code(s): Z87.09 - PERSONAL HISTORY OF OTHER DISEASES OF THE RESPIRATORY SYSTEM Status: Chronic (5) PTSD (post-traumatic stress disorder) Code(s): F43.10 - POST-TRAUMATIC STRESS DISORDER, UNSPECIFIED Status: Acute (6) Hypothyroid Code(s): E03.9 - HYPOTHYROIDISM, UNSPECIFIED Status: Acute - Plan Plan: 60 year old female with history of idiopathic hypotension presented to the emergency department today for recurrent falls. 1. Fall - Mechanical: Right non displaced acromial fracture and concussion -CT head, neck, chest, abdomen, pelvis: no acute findings -Right shoulder Xray: non displaced acromial fracture - Sling, ortho follow up outpt -Cyclobenzaprin for pain -PT/OT consult -UDS and SDS: + for Benos & THC -Cerebral rest and post concussive measures 2. Idiopathic Hypotension -Borderline BP on arrival, responded to fluids -Missed 1 dose of midodrine -Resume home meds -No events overnight 3. PTSD -Continue home medications: prozac and alprazolam 4. COPD -Continue home medications: Incur and symbicort 5. Hypothyroid -Continue home medications: levothyroxine IVF: SL VTE: SCD Diet: Regular Code: Full PCP: OOT Dispo: Tele obs, LOS < 48H. PT/OT eval for injuries and functional status. Symptomatic management of concussion. Will talk to ortho today to make sure they do not want to see her. Addendum - Attending - Attending Attestation Date/Time: 10/25/20 [id number] I personally evaluated the patient and discussed the management with Dr. Gregory. I agree with the History, Examination, Assessment and Plan documented above with any addition or exceptions noted below. The patient complains of pain. Will talk with ortho regarding fracture. Discussed course of a concussion with pt. Will try muscle relaxer. Ask PT to evaluate for safety.
[2020-10-25] MEDS ORDERED: Mometasone 200 MCG/Formoterol 5 MCG 120 PUFF INHALER INH SCH (06:30)
[2020-10-25] MEDS ORDERED: Ferrous Sulfate 325 MG TAB PO SCH (08:00)
[2020-10-25] MEDS: Midodrine HCl 5 MG TAB PO SCH ×2 (08:01→15:35)
[2020-10-25] MEDS ORDERED: FLUoxetine HCl 20 MG CAP PO SCH (09:00)
[2020-10-25] MEDS ORDERED: Cyclobenzaprine 10 MG TAB PO SCH (09:00)
--- NOTE | 2020-10-25 09:36 | RAD ---
RIGHT KNEE 4 VIEWS: HISTORY: Knee pain. FINDINGS: There are no signs of fracture, dislocation, or joint effusion. IMPRESSION: Negative right knee. POS: OFF
[2020-10-25] MEDS: Diclofenac 1% 100 GM GEL TP SCH ×2 (11:27→14:25)
[2020-10-25] MEDS ORDERED: Ketorolac Tromethamine 30 MG/ML VIAL IVP SCH (12:00)
[2020-10-25 15:34] VITALS: BP 98/61; TEMP 98
--- NOTE | 2020-10-26 06:41 | DIS ---
DATE OF ADMISSION: 10/24/2020 DATE OF DISCHARGE: 10/25/2020 ATTENDING PHYSICIAN: Amanda Gomez MD RESIDENT: Héctor Gregory MD CONSULTS: With Ortho, the case being nondisplaced acromial fracture on the right, was discussed with Orthopedics, Dr. Zhang, and he recommended outpatient followup with a sling. PROCEDURES: Brain CT on 10/24/2020 showed no intracranial hemorrhage or displaced calvarial fracture. Cervical spine CT on 10/24/2020; no acute osseous abnormality. Chest, abdomen and pelvis CT on 10/24/2020; there are incidental findings as detailed above. No acute post-traumatic abnormality within chest, abdomen, pelvis, thoracic spine, or lumbar spine. Incidentally showed 2 peripheral right upper lobe lung nodules measuring 4 mm, unchanged from CT on 03/24/2020. Follow up outpatient. Shoulder x-ray on 10/24/2020 shows nondisplaced mid-acromion fracture. Knee x- ray on 10/25/2020 shows no acute abnormality. PRIMARY DIAGNOSES: 1. Fall. 2. Idiopathic hypotension. SECONDARY DIAGNOSES: 1. Post-traumatic stress disorder. 2. Chronic obstructive pulmonary disease. 3. Hypothyroidism. MEDICATIONS: Home medications are: 1. Incruse Ellipta one inhalation daily. 2. Protonix 40 mg p.o. b.i.d. 3. Midodrine 5 mg p.o. t.i.d. 4. Linzess 72 mcg p.o. daily. 5. Levothyroxine 50 mcg daily. 6. Gabapentin 600 mg at bedtime. 7. Iron 325 mg daily. 8. Prozac 40 mg daily. 9. Budesonide/formoterol inhaler two puffs inhaled b.i.d. 10. Albuterol 0.63 mg nebulizer q.6 hours p.r.n. for shortness of breath. 11. Alprazolam 0.5 mg p.o. at bedtime. Medications added: 1. Zofran 4 mg p.o. at bedtime p.r.n. for nausea. 2. Flexeril 10 mg p.o. b.i.d. for pain for 10 days. 3. Tylenol 650 mg p.o. q.4 hours p.r.n. for pain. Discontinued medications: 1. Fentanyl. 2. Tavares. HISTORY OF PRESENT ILLNESS: The patient is a 60-year-old female with a history of idiopathic hypotension, who presented to the ED today after recurrent falls. She states she fell a total of 3 times on 10/24, attributing the falls to the icy condition. She says her last fall, she fell backwards and struck the back of her head and she believes she lost consciousness for a short time. Due to the pain from her fall, she took multiple shots of fireball. Afterwards, she felt dazed and confused for a while, so she came to the ED to be evaluated. Upon arrival, blood pressures were soft at 92/77. These were responsive to 1 L fluid. She states she had missed her afternoon midodrine dose due to the incident . She also noted that she had pain in the posterior of her head and headache as well as right hip and knee pain. She had imaging of all these areas, which was normal. The patient was previously on Eliquis for PE, but was taken off that and is not currently anticoagulated. Currently, her only complaint is a mild headache. She denies any focal neurologic deficit. She denies any history of head trauma. On 10/25, she complained of all-over body pain from the fall. She complained of right knee pain. Imaging was done, which was normal. In the ED, she received 50 mcg of Fentanyl x2, 1 L of normal saline. She had a CT brain, chest, abdomen and pelvis, x-ray of shoulder, x-ray of right knee as noted above. 1. Fall. Imaging as above is normal. Right shoulder x-ray shows a nondisplaced acromion fracture. Discussed with Ortho and they recommended sling and outpatient followup. We will include that in her discharge. Cyclobenzaprine for pain. PT, OT recommended that she go to rehab, but patient declined. UDS and serum drug screen were positive for benzos and THC. Cerebral rest and post concussive measures. 2. Idiopathic hypotension, borderline blood pressures on arrival. Orthostatics were normal. Missed one done of midodrine. Resume home medication. No events overnight. 3. PTSD. Continue home medications of Prozac and alprazolam. 4. COPD. Continue inhalers. 5. Hypothyroidism. Continue levothyroxine. 6. Incidental lung nodules. There are two, 4 mm in the upper lobe of the right lung, unchanged from 03/24, needs to be followed up outpatient. 7. The patient has hiatal hernia and coronary artery calcifications as noted on CT. DISCHARGE INSTRUCTIONS: 1. Location: Home. Rehab recommended but patient declined. 2. Activity: As tolerated. 3. Diet: Regular. 4. Followup: Follow up with Dr. Zhang in 2 to 4 weeks of discharge and PCP in 7 days of discharge. Job ID: [id number] [facility]
== END 2020-10-25 16:45 | disposition home or self-care (01) ==
LOC: ERS 13:51 → ERHOLD 17:58 → 2NO 10-25 01:32
PROVIDERS: ADMIT Family Medicine; ATTEND Family Medicine
DX: I95.0 Idiopathic hypotension (principal); S42.124A Nondisplaced fracture of acromial process, right shoulder, initial encounter for closed fracture; S06.0X9A Concussion with loss of consciousness of unspecified duration, initial encounter; S22.41XA Multiple fractures of ribs, right side, initial encounter for closed fracture; F43.10 Post-traumatic stress disorder, unspecified; J44.9 Chronic obstructive pulmonary disease, unspecified; E03.9 Hypothyroidism, unspecified; F17.220 Nicotine dependence, chewing tobacco, uncomplicated; I48.91 Unspecified atrial fibrillation; F12.10 Cannabis abuse, uncomplicated; R91.8 Other nonspecific abnormal finding of lung field; K44.9 Diaphragmatic hernia without obstruction or gangrene; I25.10 Atherosclerotic heart disease of native coronary artery without angina pectoris; Z86.711 Personal history of pulmonary embolism; Z91.5 Personal history of self-harm; Z79.899 Other long term (current) drug therapy; Z88.5 Allergy status to narcotic agent; Z88.8 Allergy status to other drugs, medicaments and biological substances; Z20.822 Contact with and (suspected) exposure to COVID-19; W00.9XXA Unspecified fall due to ice and snow, initial encounter
CPT/HCPCS: 70450; 71260; 72125; 73030; 73564; 74177; 80053; 80306; 80307; 82550; 83605; 83690; 83880; 84484; 85025; 85610; 85730; 93005; 94640 ×3; 96374; 96376; 97116; 99285; U0003; U0005; 36415; 87635; G0378; J3010; J7620; Q0162; Q9967

== ENCOUNTER 2020-11-02 09:55 | Outpatient (CLI) | payer MEDICARE, MEDICAID ==
--- NOTE | 2020-11-02 13:08 | RAD ---
EXAM: XR UGI Air Contrast PROVIDED CLINICAL HISTORY: Hiatal hernia. History of prior repair x2. 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 Multiple surgical clips o verlie the right upper quadrant. Calcifications are seen overlying the left upper quadrant. Facet degenerative change are seen at the L5-S1 level. Single contrast upper GI was performed. There is a decrease in primary esophageal peristalsis with te rtiary contractions seen within the esophagus. No mucosal irregularity or focal narrowing is appreciated. There is a large paraesophageal hernia present. The stomach otherwise has a normal appea chele. There is decreased peristalsis of the stomach with delayed emptying of the stomach. No gastroesophageal reflux was demonstrated during the exam. Duodenal bulb, duodenum, and visualized pro ximal small bowel demonstrate a normal appearance. IMPRESSION: 1. Large paraesophageal hernia. 2. Decreased primary esophageal peristalsis with tertiary contractions. 3. Decreased peristalsis and emptying of the stomach.
== END 2020-11-02 09:56 | disposition home or self-care (01) ==
LOC: RAD 09:55
PROVIDERS: ATTEND Specialist
DX: K44.9 Diaphragmatic hernia without obstruction or gangrene (principal)
CPT/HCPCS: 74246

== ENCOUNTER 2020-11-12 12:41 | Outpatient (CLI) | payer MEDICARE, MEDICAID ==
[2020-10-28 20:41] LABS: SARS-CoV-2 PCR by NAA Not Detected (NotDetected)
[2020-11-12 14:36] LABS: #Eosinphils 0.1 10x3/uL (0.0-0.5); #Monocytes 0.4 10x3/uL (0.0-1.1); %Basophils 0.6 % (0.0-2.0); %Eosinophils 2.5 % (0.0-6.0); %Lymphocytes 30.4 % (18.0-47.0); %Monocytes 8.5 % (0.0-10.0); %Neutrophils 57.8 % (40.0-75.0); Hemoglobin 10.7 g/dL (12.0-15.5); Mean Corpuscular HGB CONC 31.7 g/dL (32.0-36.0); Mean Corpuscular Volume 94.7 fl (81.6-98.3); Mean Platelet Volume 11.2 fl (7.4-10.4); Platelet Count 249 10x3/uL (150-450); RBC Distribution Width 15.9 % (11.5-14.5); Red Blood Cell (RBC) Count 3.57 10x6/uL (3.90-5.03); White Blood Cell (WBC) Count 5.2 10x3/uL (3.5-10.5)
[2020-11-12 14:46] LABS: Anion Gap 10 mmol/L (10-20); BUN (Urea Nitrogen) 16 mg/dL (9.8-20.1); Calc. Creatinine Clearance 0 mL/min (70-130); Calcium 9.2 mg/dL (7.8-10.44); Carbon Dioxide 25 mmol/L (22-29); Chloride 107 mmol/L (98-107); Glucose 77 mg/dL (70-105); Potassium 4.4 mmol/L (3.5-5.1); Sodium 138 mmol/L (136-145)
[2020-11-12 23:37] LABS: SARS-CoV-2 PCR by NAA Not Detected (NotDetected)
== END 2020-11-12 12:42 | disposition home or self-care (01) ==
LOC: LABBT 12:41
PROVIDERS: ATTEND Specialist
DX: Z01.812 Encounter for preprocedural laboratory examination (principal); Z87.19 Personal history of other diseases of the digestive system; Z20.822 Contact with and (suspected) exposure to COVID-19
CPT/HCPCS: 80048; 85025; U0003 ×2; U0005 ×2; 87635

== ENCOUNTER 2020-11-17 09:26 | Day surgery (SDC) | payer MEDICARE, MEDICAID ==
[2020-11-16 14:07] VITALS: BMI 25.2
== END 2020-11-17 11:34 | disposition home or self-care (01) ==
LOC: SDC 09:26 → EDSTATUS 12:45
PROVIDERS: ATTEND Specialist
DX: K44.9 Diaphragmatic hernia without obstruction or gangrene (principal); Z53.9 Procedure and treatment not carried out, unspecified reason; Z79.899 Other long term (current) drug therapy; Z88.5 Allergy status to narcotic agent; Z88.6 Allergy status to analgesic agent; Z88.8 Allergy status to other drugs, medicaments and biological substances

== ENCOUNTER 2020-12-14 11:37 | Emergency (ER) | payer MEDICARE, MEDICAID | END 2020-12-14 16:36 | disposition left against medical advice (07) | LOC: ERS 11:37 | DX: Z53.21 Procedure and treatment not carried out due to patient leaving prior to being seen by health care provider (principal) ==

== ENCOUNTER 2020-12-21 11:02 | Outpatient (CLI) | payer MEDICARE, MEDICAID ==
[2020-12-21 13:01] LABS: #Basophils 0.1 10x3/uL (0.0-0.2); #Eosinphils 0.1 10x3/uL (0.0-0.5); #Monocytes 0.6 10x3/uL (0.0-1.1); #Neutrophils 4.5 10x3/uL (1.5-8.4); %Basophils 0.7 % (0.0-2.0); %Eosinophils 2.1 % (0.0-6.0); %Lymphocytes 22.2 % (18.0-47.0); %Monocytes 8.2 % (0.0-10.0); %Neutrophils 66.5 % (40.0-75.0); Hemoglobin 8.8 g/dL (12.0-15.5); Mean Corpuscular HGB CONC 31.7 g/dL (32.0-36.0); Mean Corpuscular Hemoglobin 29.1 pg (27.0-33.0); Mean Corpuscular Volume 92.1 fl (81.6-98.3); Mean Platelet Volume 11.1 fl (7.4-10.4); Platelet Count 295 10x3/uL (150-450); RBC Distribution Width 16.7 % (11.5-14.5); Red Blood Cell (RBC) Count 3.02 10x6/uL (3.90-5.03); White Blood Cell (WBC) Count 6.8 10x3/uL (3.5-10.5)
[2020-12-21 14:16] LABS: Anion Gap 15 mmol/L (10-20); BUN (Urea Nitrogen) 11 mg/dL (9.8-20.1); Calc. Creatinine Clearance 0 mL/min (70-130); Carbon Dioxide 21 mmol/L (22-29); Chloride 103 mmol/L (98-107); Potassium 4.1 mmol/L (3.5-5.1); Sodium 135 mmol/L (136-145)
[2020-12-21 14:17] LABS: Calcium 9.2 mg/dL (7.8-10.44); Glucose 94 mg/dL (70-105)
[2020-12-22 06:59] LABS: SARS-CoV-2 PCR by NAA Not Detected (NotDetected)
== END 2020-12-21 11:03 | disposition home or self-care (01) ==
LOC: LABBT 11:02
PROVIDERS: ATTEND Specialist
DX: Z01.812 Encounter for preprocedural laboratory examination (principal); Z87.19 Personal history of other diseases of the digestive system; Z20.822 Contact with and (suspected) exposure to COVID-19
CPT/HCPCS: 80048; 85025; U0003; U0005; 87635

== ENCOUNTER 2021-03-11 19:47 | Emergency (ER) | payer MEDICARE, MEDICAID ==
[2021-03-11] MEDS ORDERED: Morphine 4 MG/ML VIAL ONE ×2 (20:33→22:28)
[2021-03-11] MEDS ORDERED: Ondansetron PF 4 MG/2 ML Vial ONE (20:33)
[2021-03-11 20:59] LABS: #Eosinphils 0.1 thou/uL (0.0-0.7); #Lymphocytes 1.3 thou/uL (1.20-3.40); #Monocytes 0.8 thou/uL (0.11-0.59); #Neutrophils 14.4 thou/uL (1.40-6.50); %Basophils 0.2 % (0.0-1.0); %Eosinophils 0.9 % (0.0-10.0); %Monocytes 4.5 % (0.0-10.0); %Neutrophils 86.5 % (42.0-75.0); Hemoglobin 10.5 g/dL (12.0-16.0); Mean Corpuscular HGB CONC 33.1 g/dL (32.0-36.0); Mean Corpuscular Hemoglobin 29.7 pg (27.0-31.0); Mean Corpuscular Volume 89.7 fL (78.0-98.0); Mean Platelet Volume 6.8 fL (7.4-10.4); Platelet Count 563 thou/uL (130-400); RBC Distribution Width 19.3 % (11.5-14.5); Red Blood Cell (RBC) Count 3.52 mill/uL (4.20-5.40); White Blood Cell (WBC) Count 16.7 thou/uL (4.8-10.8)
[2021-03-11 21:24] LABS: ALT (SGPT) 12 U/L (8-55); AST (SGOT) 14 U/L (5-34); Alkaline Phosphatase 27 U/L (40-110); Anion Gap 12 mmol/L (10-20); BUN (Urea Nitrogen) 7 mg/dL (9.8-20.1); Bilirubin, Total 0.2 mg/dL (0.2-1.2); Calc. Creatinine Clearance 0 mL/min (70-130); Calcium 9.1 mg/dL (7.8-10.44); Carbon Dioxide 24 mmol/L (22-29); Chloride 100 mmol/L (98-107); Globulin 3.7 g/dL (2.4-3.5); Glucose 113 mg/dL (70-105); Lipase 60 U/L (8-78); Potassium 3.9 mmol/L (3.5-5.1); Protein, Total 6.7 g/dL (6.0-8.3); Sodium 132 mmol/L (136-145)
[2021-03-11] MEDS ORDERED: Cefepime 2 GM VIAL ONE (21:38)
[2021-03-11 22:40] LABS: Bilirubin Negative (Negative); Blood, Urine Negative (Negative); Clarity Clear (Clear); Glucose, Urine (Dipstick) Normal (Negative); Ketone, Urine Negative (Negative); Leukocyte Negative Leu/uL (Negative); Nitrite Negative (Negative); Protein, Urine (Dipstick) Negative (Neg-Trace); Specific Gravity, Urine 1.028 (1.002-1.036); Urobilinogen Normal mg/dL (Less than 2); pH, Urine 7.5 (5.0-9.0)
[2021-03-11] MEDS ORDERED: Vancomycin 1 GM/200 ML BAG ONE (23:47)
[2021-03-12] MEDS ORDERED: Fentanyl 100 MCG/2 ML VIAL ONE ×6 (00:15→12:54)
[2021-03-12] MEDS ORDERED: diphenhydrAMINE 50 MG/ML VIAL ONE (00:15)
[2021-03-12] MEDS ORDERED: Vancomycin 1 GM/200 ML BAG ONE (09:32)
== END 2021-03-12 13:45 | disposition short-term general hospital (02) ==
LOC: ERS 19:47
DX: T81.49XA Infection following a procedure, other surgical site, initial encounter (principal); T81.83XA Persistent postprocedural fistula, initial encounter; L02.211 Cutaneous abscess of abdominal wall; K56.600 Partial intestinal obstruction, unspecified as to cause; F17.220 Nicotine dependence, chewing tobacco, uncomplicated
CPT/HCPCS: 36415; 74177; 80053; 81003; 83605; 83690; 87040; 96365; 96366; 96375; 96376; J0692; J1200; J2270; J2405; J3010; J3370; Q9967

== ENCOUNTER 2021-08-08 04:10 | Emergency (ER) | payer MEDICARE, MEDICAID ==
[2021-08-08 05:09] LABS: #Eosinphils 0.1 thou/uL (0.0-0.7); #Lymphocytes 1.2 thou/uL (1.20-3.40); #Monocytes 0.5 thou/uL (0.11-0.59); #Neutrophils 2.5 thou/uL (1.40-6.50); %Basophils 0.6 % (0.0-1.0); %Eosinophils 2.4 % (0.0-10.0); %Lymphocytes 27.8 % (21.0-51.0); %Monocytes 11.8 % (0.0-10.0); %Neutrophils 57.4 % (42.0-75.0); Hemoglobin 12.1 g/dL (12.0-16.0); Mean Corpuscular HGB CONC 32.8 g/dL (32.0-36.0); Mean Corpuscular Hemoglobin 31.8 pg (27.0-31.0); Mean Corpuscular Volume 97.1 fL (78.0-98.0); Mean Platelet Volume 7.8 fL (7.4-10.4); Platelet Count 221 thou/uL (130-400); White Blood Cell (WBC) Count 4.3 thou/uL (4.8-10.8)
[2021-08-08 05:28] LABS: ALT (SGPT) 21 U/L (8-55); AST (SGOT) 30 U/L (5-34); Albumin 3.7 g/dL (3.5-5.0); Alkaline Phosphatase 58 U/L (40-110); Anion Gap 11 mmol/L (10-20); BUN (Urea Nitrogen) 14 mg/dL (9.8-20.1); Bilirubin, Total 0.2 mg/dL (0.2-1.2); Calc. Creatinine Clearance 0 mL/min (70-130); Calcium 9.2 mg/dL (7.8-10.44); Carbon Dioxide 26 mmol/L (22-29); Chloride 103 mmol/L (98-107); Globulin 3.4 g/dL (2.4-3.5); Glucose 88 mg/dL (70-105); Potassium 4.2 mmol/L (3.5-5.1); Protein, Total 7.1 g/dL (6.0-8.3); Sodium 136 mmol/L (136-145)
[2021-08-08] MEDS ORDERED: Morphine 4 MG/ML VIAL ONE (06:27)
[2021-08-08] MEDS ORDERED: Ondansetron PF 4 MG/2 ML Vial ONE (06:27)
[2021-08-08] MEDS ORDERED: Iopamidol-370 76% 500 ML 1 ML ONE (11:09)
== END 2021-08-08 07:45 | disposition home or self-care (01) ==
LOC: ERS 04:10
DX: L03.211 Cellulitis of face (principal); R68.84 Jaw pain; F17.220 Nicotine dependence, chewing tobacco, uncomplicated
CPT/HCPCS: 36415; 70487; 80053; 85025; 96374; 96375; J2270; J2405; Q9967

== ENCOUNTER 2022-06-26 17:35 | Emergency (ER) | payer MEDICARE, MEDICAID ==
[2022-06-26] MEDS ORDERED: HYDROcodone/Acetaminophen 10/325 mg Tablet ONE (19:44)
== END 2022-06-26 19:52 | disposition home or self-care (01) ==
LOC: ERS 17:35
DX: M79.672 Pain in left foot (principal); F17.220 Nicotine dependence, chewing tobacco, uncomplicated

== ENCOUNTER 2023-10-23 10:44 | Outpatient (CLI) | payer OTHER, MEDICAID | END 2023-10-23 10:45 | disposition home or self-care (01) | LOC: BICRAD 10:44 | PROVIDERS: ATTEND Nurse Practitioner Family | DX: M54.50 Low back pain, unspecified (principal); M47.816 Spondylosis without myelopathy or radiculopathy, lumbar region; M46.06 Spinal enthesopathy, lumbar region; M89.38 Hypertrophy of bone, other site; M43.8X6 Other specified deforming dorsopathies, lumbar region | CPT/HCPCS: 72100 ==

== ENCOUNTER 2024-03-20 11:41 | Emergency (ER) | payer OTHER, MEDICAID ==
[2024-03-20] MEDS ORDERED: HYDROcodone/Acetaminophen 5/325 mg Tablet ONE (12:17)
== END 2024-03-20 12:19 | disposition home or self-care (01) ==
LOC: ERS 11:41
DX: L03.311 Cellulitis of abdominal wall (principal); K21.9 Gastro-esophageal reflux disease without esophagitis; F17.220 Nicotine dependence, chewing tobacco, uncomplicated; J44.9 Chronic obstructive pulmonary disease, unspecified; Z79.899 Other long term (current) drug therapy; Z79.51 Long term (current) use of inhaled steroids
CPT/HCPCS: 99283

== ENCOUNTER 2024-10-03 11:12 | Emergency (ER) | payer OTHER ==
[2024-10-03 11:35] LABS: #Basophils 0.05 10x3/uL (0.0-0.2); %Basophils 0.7 % (0.0-1.0); %Eosinophils 1.5 % (0.0-10.0); %Lymphocytes 22.8 % (21.0-51.0); %Monocytes 5.8 % (0.0-10.0); %Neutrophils 68.9 % (42.0-75.0); Hematocrit 40.7 % (36.0-47.0); Hemoglobin 13.8 g/dL (12.0-16.0); Mean Corpuscular HGB CONC 33.9 g/dL (32.0-36.0); Mean Corpuscular Volume 97.4 fL (78.0-98.0); Mean Platelet Volume 10.3 fL (7.4-10.4); Platelet Count 236 10x3/uL (130-400); Red Blood Cell (RBC) Count 4.18 mill/uL (4.20-5.40)
[2024-10-03 11:48] LABS: ALT (SGPT) 33 U/L (Less than 34); AST (SGOT) 35 U/L (11-34); Albumin 3.9 g/dL (3.1-4.5); Alkaline Phosphatase 56 U/L (40-110); Anion Gap 13 mmol/L (10-20); BUN (Urea Nitrogen) 5 mg/dL (9.8-20.1); Bilirubin, Total 0.2 mg/dL (0.3-1.2); Calc. Creatinine Clearance 0 mL/min (70-130); Calcium 9.4 mg/dL (7.8-10.44); Carbon Dioxide 24 mmol/L (23-31); Chloride 104 mmol/L (98-107); Estimated GFR 91; Globulin 3.5 g/dL (2.4-3.5); Glucose 91 mg/dL (80-115); Lipase 14 U/L (8-78); Protein, Total 7.4 g/dL (5.8-8.1); Sodium 137 mmol/L (136-145)
[2024-10-03] MEDS ORDERED: Iopamidol-370 76% 500 ML MDV (1 ML CHARGE) ONE (13:51)
[2024-10-03] MEDS ORDERED: Sucralfate 1 GM/10 ML UDCUP ONE (14:04)
[2024-10-03] MEDS ORDERED: Famotidine/PF 20 mg/2ml Vial ONE (14:22)
[2024-10-03] MEDS ORDERED: Morphine 4 MG/ML VIAL ONE ×2 (15:14→17:49)
[2024-10-03 16:27] LABS: Bilirubin Negative (Negative); Blood, Urine Negative (Negative); CAUTI Indications for Culture Pelvic or flank pain; Clarity Clear (Clear); Glucose, Urine (Dipstick) Normal (Negative); Ketone, Urine Negative (Negative); Leukocyte Negative Leu/uL (Negative); Nitrite Negative (Negative); Protein, Urine (Dipstick) Negative (Neg-Trace); RBC/HPF None Seen HPF (0-3); Specific Gravity, Urine 1.004 (1.002-1.036); Squamous Epithelial 0-3 HPF (0-3); Urobilinogen Normal mg/dL (Less than 2); WBC/HPF 0-3 HPF (0-3); pH, Urine 6.5 (5.0-9.0)
[2024-10-03 16:30] LABS: Bacteria/HPF 1+ HPF (None Seen)
[2024-10-03 16:31] LABS: Urine Culture Reflex No No
[2024-10-03] MEDS ORDERED: Ondansetron PF 4 MG/2 ML Vial ONE (17:20)
== END 2024-10-03 17:56 | disposition home or self-care (01) ==
LOC: ERS 11:12
DX: R10.13 Epigastric pain (principal); K21.9 Gastro-esophageal reflux disease without esophagitis; F17.220 Nicotine dependence, chewing tobacco, uncomplicated
CPT/HCPCS: 74177; 80053; 81001; 83690; 85025; 93005; J2270; J2405; J3490; 36415; 96374; 96375; 96376; Q9967

== ENCOUNTER 2024-10-10 10:56 | Emergency (ER) | payer OTHER ==
[2024-10-10] MEDS ORDERED: Acetaminophen 500 MG TAB ONE (11:43)
== END 2024-10-10 12:26 | disposition home or self-care (01) ==
LOC: ERS 10:56
DX: S40.012A Contusion of left shoulder, initial encounter (principal); M54.6 Pain in thoracic spine; K21.9 Gastro-esophageal reflux disease without esophagitis; F17.220 Nicotine dependence, chewing tobacco, uncomplicated; J44.9 Chronic obstructive pulmonary disease, unspecified; Z79.899 Other long term (current) drug therapy; V89.2XXA Person injured in unspecified motor-vehicle accident, traffic, initial encounter; Z55.6 Problems related to health literacy
CPT/HCPCS: 71045; 72125; 72128

== ENCOUNTER 2025-04-06 10:57 | Emergency (ER) | payer OTHER ==
[2025-04-06] MEDS ORDERED: HYDROcodone/Acetaminophen 10/325 mg Tablet ONE (11:36)
== END 2025-04-06 13:31 | disposition home or self-care (01) ==
LOC: ERS 10:57
DX: M25.562 Pain in left knee (principal); K21.9 Gastro-esophageal reflux disease without esophagitis; J44.9 Chronic obstructive pulmonary disease, unspecified; Z79.899 Other long term (current) drug therapy; Z79.890 Hormone replacement therapy; X50.1XXA Overexertion from prolonged static or awkward postures, initial encounter; Y93.89 Activity, other specified
CPT/HCPCS: 99283